=== PATIENT | female | born 1985 | race Hispanic/Latino ===

== ENCOUNTER 2024-03-05 15:57 | Inpatient (IN) | payer BC ==
[~2024-03-05] VITALS: Ht 154.9 cm; Wt 57.4 kg
[~2024-03-05 15:57] MED LIST: FAMO40TA7 PO; MESA1.2T PO; PRED20B PO
[2024-03-05 16:50] LABS: BASOPHILS # (AUTO) 0.11 K/uL (0.00-0.20); BASOPHILS % (AUTO) 0.6 % (0.0-5.0); EOSINOPHILS # (AUTO) 0.08 K/uL (0.00-0.70); EOSINOPHILS % (AUTO) 0.5 % (0.0-8.0); HEMATOCRIT 34.9 % (36-48); IMMATURE GRANULOCYTE ABSOLUTE 0.31 K/uL (0-1); LYMPHOCYTES # (AUTO) 1.1 K/uL (1.0-4.8); LYMPHOCYTES % (AUTO) 6.1 % (21.0-51.0); MEAN CORPUSCULAR HEMOGLOBIN 26.6 pg (27.0-33.0); MEAN CORPUSCULAR HGB CONC 30.7 g/dL (32.0-36.0); MEAN CORPUSCULAR VOLUME 86.6 fL (79-99); MONOCYTES # (AUTO) 0.8 K/uL (0.1-1.0); MONOCYTES % (AUTO) 4.3 % (3.0-13.0); NEUTROPHILS # (AUTO) 15.2 K/uL (1.8-7.7); NEUTROPHILS % (AUTO) 86.7 % (40.0-77.0); NUCLEATED RED BLOOD CELLS 0.2 % (0.0-0.19); PLATELET COUNT (AUTO) 628 K/uL (130-400); RED BLOOD CELL COUNT(AUTO) 4.03 MIL/uL (4.00-5.50); WHITE BLOOD COUNT (AUTO) 17.5 K/uL (4.8-10.8)
[2024-03-05 16:59] LABS: APPEARANCE,URINE CLOUDY (CLEAR); BILIRUBIN,URINE NEGATIVE (NEGATIVE); COLOR,URINE YELLOW (YELLOW); GLUCOSE, URINE (UA) 30 mg/dL (NEGATIVE); KETONES,URINE 5 mg/dL (NEGATIVE); LEUKOCYTE ESTERASE ,URINE NEGATIVE Leu/uL (NEGATIVE); NITRATE,URINE NEGATIVE (NEGATIVE); OCCULT BLOOD,URINE NEGATIVE (NEGATIVE); PH,URINE 6.5 (5.0-8.0); PROTEIN,URINE 70 mg/dL (NEGATIVE); UROBILINOGEN,URINE 0.2 mg/dL (0.2-1.0)
[2024-03-05 17:11] LABS: ADD UA MICROSCOPIC YES
[2024-03-05 17:13] LABS: BACTERIA,URINE RARE /HPF (None Seen); MUCUS,URINE FEW LPF (None Seen); SQUAMOUS EPITHELIAL CELL,UR FEW /HPF (0-2)
[2024-03-05 17:14] LABS: ALBUMIN 1.6 g/dL (3.5-5.0); BILIRUBIN,TOTAL 0.3 mg/dL (0.2-1.0); CREATININE 0.7 mg/dL (0.5-1.0); TOTAL PROTEIN, SERUM 5.7 g/dL (6.0-8.3)
[2024-03-05 17:17] LABS: POTASSIUM 2.5 mmol/L (3.5-5.1)
[2024-03-05] MEDS: 0.9%NACL 1000ML 1,000 ML IV ONE (17:22)
[2024-03-05] MEDS: ONDANSETRON 4MG INJ IVP ONE (17:22)
[2024-03-05] MEDS: MORPHINE 4 MG SYG IVP ONE (17:22)
[2024-03-05] MEDS: POTASSIUM BICARB/CIT AC 25 MEQ TABLET.EFF PO ONE (18:08)
[2024-03-05] MEDS: ZOSYN 3.375GM +NS 50ML IVPB ONE (18:08)
[2024-03-05] MEDS ORDERED: IOHEXOL 350 MG/ML 100ML INFUS..BTL IV ONE (18:14)
[2024-03-05] MEDS: SOLU-MEDROL 125MG VIAL IVP SCH (20:21)
[2024-03-05] MEDS: MORPHINE 2 MG SYG IVP ONE (22:07)
[2024-03-05] MEDS: LACTATED RINGERS 1000ML 1,000 ML IV SCH (23:52)
[2024-03-06] VITALS (8 sets, daily range): BP systolic 86–108; BP diastolic 59–76; PULSE 105–117; RESP 16–20; O2SAT 99
[2024-03-06] MEDS: POTASSIUM CHLORIDE 20MEQ/100ML 100 ML IV PRN (01:31)
[2024-03-06] MEDS: MORPHINE 2 MG SYG IVP PRN (03:40)
[2024-03-06] MEDS: ZOSYN 3.375GM+NS 50ML 50 ML IV SCH (04:53)
[2024-03-06 06:10] LABS: BASOPHILS # (AUTO) 0.09 K/uL (0.00-0.20); BASOPHILS % (AUTO) 0.5 % (0.0-5.0); HEMATOCRIT 28.8 % (36-48); IMMATURE GRANULOCYTE ABSOLUTE 0.23 K/uL (0-1); LYMPHOCYTES # (AUTO) 0.9 K/uL (1.0-4.8); LYMPHOCYTES % (AUTO) 4.8 % (21.0-51.0); MEAN CORPUSCULAR HEMOGLOBIN 26.9 pg (27.0-33.0); MEAN CORPUSCULAR HGB CONC 29.5 g/dL (32.0-36.0); MEAN CORPUSCULAR VOLUME 91.1 fL (79-99); MONOCYTES # (AUTO) 0.2 K/uL (0.1-1.0); MONOCYTES % (AUTO) 0.8 % (3.0-13.0); NEUTROPHILS # (AUTO) 17.8 K/uL (1.8-7.7); NEUTROPHILS % (AUTO) 92.7 % (40.0-77.0); PLATELET COUNT (AUTO) 566 K/uL (130-400); RED BLOOD CELL COUNT(AUTO) 3.16 MIL/uL (4.00-5.50); RED CELL DISTRIBUTION WIDTH 25.6 % (11.0-15.5); WHITE BLOOD COUNT (AUTO) 19.1 K/uL (4.8-10.8)
[2024-03-06 06:31] LABS: ALBUMIN 1.2 g/dL (3.5-5.0); BILIRUBIN,TOTAL 0.1 mg/dL (0.2-1.0); CREATININE 0.5 mg/dL (0.5-1.0); MAGNESIUM 1.8 mg/dL (1.80-2.40); POTASSIUM 3.8 mmol/L (3.5-5.1); THYROID STIMULATING HORMONE 0.44 uIU/mL (0.36-3.74); TOTAL PROTEIN, SERUM 4.5 g/dL (6.0-8.3)
[2024-03-06] MEDS: PANTOPRAZOLE 40 MG/VIAL IVP SCH (09:27)
[2024-03-06] MEDS: SOLU-MEDROL 40MG VIAL IVP SCH (09:27)
[2024-03-06 11:34] LABS: HEMATOCRIT 29.1 % (36-48); MEAN CORPUSCULAR HEMOGLOBIN 26.8 pg (27.0-33.0); MEAN CORPUSCULAR HGB CONC 29.6 g/dL (32.0-36.0); MEAN CORPUSCULAR VOLUME 90.7 fL (79-99); RED BLOOD CELL COUNT(AUTO) 3.21 MIL/uL (4.00-5.50); RED CELL DISTRIBUTION WIDTH 25.5 % (11.0-15.5)
[2024-03-06 18:56] LABS: HEMATOCRIT 31.3 % (36-48); MEAN CORPUSCULAR HEMOGLOBIN 26.7 pg (27.0-33.0); MEAN CORPUSCULAR HGB CONC 29.1 g/dL (32.0-36.0); MEAN CORPUSCULAR VOLUME 91.8 fL (79-99); RED BLOOD CELL COUNT(AUTO) 3.41 MIL/uL (4.00-5.50); RED CELL DISTRIBUTION WIDTH 25.7 % (11.0-15.5); WHITE BLOOD COUNT (AUTO) 25.3 K/uL (4.8-10.8)
[2024-03-06 19:29] LABS: PLATELET COUNT (AUTO) 737 K/uL (130-400)
[2024-03-07] VITALS (7 sets, daily range): BP systolic 96–122; BP diastolic 64–78; PULSE 90–107; RESP 17–20; O2SAT 97–100
[2024-03-07 05:36] LABS: HEMATOCRIT 23.8 % (36-48); MEAN CORPUSCULAR HEMOGLOBIN 26.4 pg (27.0-33.0); MEAN CORPUSCULAR HGB CONC 30.3 g/dL (32.0-36.0); MEAN CORPUSCULAR VOLUME 87.2 fL (79-99); NUCLEATED RED BLOOD CELLS 0.2 % (0.0-0.19); RED BLOOD CELL COUNT(AUTO) 2.73 MIL/uL (4.00-5.50); RED CELL DISTRIBUTION WIDTH 25.2 % (11.0-15.5); WHITE BLOOD COUNT (AUTO) 13.9 K/uL (4.8-10.8)
[2024-03-07 05:56] LABS: ALBUMIN 1.2 g/dL (3.5-5.0); BILIRUBIN,TOTAL 0.1 mg/dL (0.2-1.0); CREATININE 0.5 mg/dL (0.5-1.0); POTASSIUM 3.3 mmol/L (3.5-5.1); TOTAL PROTEIN, SERUM 4.4 g/dL (6.0-8.3)
[2024-03-07] MEDS ORDERED: POTASSIUM CHLORIDE 20MEQ/100ML 100 ML IV PRN (06:30)
[2024-03-07] MEDS: POTASSIUM CHLORIDE 10% ELIXIR 20 MEQ/15 ML UDCUP PO PRN (06:49)
[2024-03-07] MEDS: POTASSIUM CHLORIDE 20MEQ/100ML 100 ML IV ONE (10:30)
[2024-03-07 11:22] LABS: HEMATOCRIT 28.3 % (36-48); MEAN CORPUSCULAR HEMOGLOBIN 27.3 pg (27.0-33.0); MEAN CORPUSCULAR HGB CONC 29.3 g/dL (32.0-36.0); MEAN CORPUSCULAR VOLUME 93.1 fL (79-99); NUCLEATED RED BLOOD CELLS 0.1 % (0.0-0.19); RED BLOOD CELL COUNT(AUTO) 3.04 MIL/uL (4.00-5.50); RED CELL DISTRIBUTION WIDTH 25.2 % (11.0-15.5); WHITE BLOOD COUNT (AUTO) 21.1 K/uL (4.8-10.8)
[2024-03-07 11:39] LABS: % IRON SATURATION 74.1 % (22-44)
[2024-03-07 11:50] LABS: INR 0.96 (0.85-1.15); PROTHROMBIN TIME 11.4 SEC (9.6-11.6)
[2024-03-07 11:51] LABS: PARTIAL THROMBOPLASTIN TIME 27.2 SEC (26.3-35.5)
[2024-03-07] MEDS: IRON SUCROSE COMPLEX 100 MG/5 ML VIAL IV ONE (16:53)
[2024-03-07 19:25] LABS: HEMATOCRIT 33.2 % (36-48); MEAN CORPUSCULAR HEMOGLOBIN 26.8 pg (27.0-33.0); MEAN CORPUSCULAR HGB CONC 29.8 g/dL (32.0-36.0); NUCLEATED RED BLOOD CELLS 0.2 % (0.0-0.19); RED BLOOD CELL COUNT(AUTO) 3.69 MIL/uL (4.00-5.50); RED CELL DISTRIBUTION WIDTH 23.3 % (11.0-15.5); WHITE BLOOD COUNT (AUTO) 15.6 K/uL (4.8-10.8)
[2024-03-08] VITALS (7 sets, daily range): BP systolic 98–110; BP diastolic 59–77; PULSE 77–114; RESP 16–18; O2SAT 98–99
[2024-03-08] MEDS: MORPHINE 2 MG SYG IVP ONE (00:43)
[2024-03-08 04:13] LABS: HEMATOCRIT 26.8 % (36-48); MEAN CORPUSCULAR HEMOGLOBIN 27.3 pg (27.0-33.0); MEAN CORPUSCULAR HGB CONC 30.6 g/dL (32.0-36.0); MEAN CORPUSCULAR VOLUME 89.3 fL (79-99); NUCLEATED RED BLOOD CELLS 0.2 % (0.0-0.19); RED CELL DISTRIBUTION WIDTH 22.7 % (11.0-15.5); WHITE BLOOD COUNT (AUTO) 12.1 K/uL (4.8-10.8)
[2024-03-08 04:24] LABS: ALBUMIN 1.2 g/dL (3.5-5.0); BILIRUBIN,TOTAL 0.1 mg/dL (0.2-1.0); CREATININE 0.6 mg/dL (0.5-1.0); POTASSIUM 3.5 mmol/L (3.5-5.1); TOTAL PROTEIN, SERUM 4.3 g/dL (6.0-8.3)
[2024-03-08] MEDS: PREDNISONE 20 MG TABLET PO SCH (09:13)
[2024-03-08] MEDS: KCL 20 MEQ ERTAB PO ONE (10:00)
[2024-03-09] VITALS (8 sets, daily range): BP systolic 87–109; BP diastolic 56–77; PULSE 72–118; RESP 16–19; O2SAT 95–98
[2024-03-09 04:52] LABS: HEMATOCRIT 28.3 % (36-48); MEAN CORPUSCULAR HEMOGLOBIN 27.6 pg (27.0-33.0); MEAN CORPUSCULAR HGB CONC 30.4 g/dL (32.0-36.0); MEAN CORPUSCULAR VOLUME 90.7 fL (79-99); NUCLEATED RED BLOOD CELLS 0.6 % (0.0-0.19); RED BLOOD CELL COUNT(AUTO) 3.12 MIL/uL (4.00-5.50); WHITE BLOOD COUNT (AUTO) 10.9 K/uL (4.8-10.8)
[2024-03-09 05:19] LABS: ALBUMIN 1.3 g/dL (3.5-5.0); BILIRUBIN,TOTAL 0.1 mg/dL (0.2-1.0); CREATININE 0.5 mg/dL (0.5-1.0); MAGNESIUM 1.6 mg/dL (1.80-2.40); POTASSIUM 4.2 mmol/L (3.5-5.1); TOTAL PROTEIN, SERUM 4.5 g/dL (6.0-8.3)
[2024-03-09] MEDS: MAGNESIUM 2GM PREMIX 50ML 50 ML IV PRN (05:56)
[2024-03-10] VITALS (8 sets, daily range): BP systolic 97–114; BP diastolic 57–77; PULSE 69–104; RESP 16–47; O2SAT 98–100
[2024-03-10 04:20] LABS: HEMATOCRIT 27.1 % (36-48); MEAN CORPUSCULAR HEMOGLOBIN 26.6 pg (27.0-33.0); MEAN CORPUSCULAR HGB CONC 29.9 g/dL (32.0-36.0); MEAN CORPUSCULAR VOLUME 89.1 fL (79-99); RED BLOOD CELL COUNT(AUTO) 3.04 MIL/uL (4.00-5.50); RED CELL DISTRIBUTION WIDTH 22.3 % (11.0-15.5); WHITE BLOOD COUNT (AUTO) 10.3 K/uL (4.8-10.8)
[2024-03-10 04:35] LABS: ALBUMIN 1.3 g/dL (3.5-5.0); BILIRUBIN,TOTAL 0.1 mg/dL (0.2-1.0); CREATININE 0.4 mg/dL (0.5-1.0); MAGNESIUM 2.2 mg/dL (1.80-2.40); POTASSIUM 3.9 mmol/L (3.5-5.1); TOTAL PROTEIN, SERUM 4.4 g/dL (6.0-8.3)
[2024-03-10] MEDS: BISACODYL 5 MG TABLET.DR PO ONE (10:40)
[2024-03-10] MEDS: ONDANSETRON 4MG INJ IV PRN (12:34)
[2024-03-10] MEDS: NEOMYCIN SULFATE 500 MG TAB PO SCH (13:38)
[2024-03-10] MEDS: METRONIDAZOLE 500 MG TABLET PO SCH (13:38)
[2024-03-11] VITALS (27 sets, daily range): BP systolic 8–152; BP diastolic 49–96; PULSE 81–97; RESP 11–22; O2SAT 100
[2024-03-11] MEDS: KETOROLAC 15MG/ML VIAL (15MG/ML) IV ONE (04:05)
[2024-03-11 05:32] LABS: HEMATOCRIT 30.5 % (36-48); MEAN CORPUSCULAR HEMOGLOBIN 27.2 pg (27.0-33.0); MEAN CORPUSCULAR HGB CONC 30.2 g/dL (32.0-36.0); MEAN CORPUSCULAR VOLUME 90.2 fL (79-99); NUCLEATED RED BLOOD CELLS 0.5 % (0.0-0.19); RED BLOOD CELL COUNT(AUTO) 3.38 MIL/uL (4.00-5.50); RED CELL DISTRIBUTION WIDTH 22.3 % (11.0-15.5)
[2024-03-11 05:54] LABS: ALBUMIN 1.5 g/dL (3.5-5.0); BILIRUBIN,TOTAL 0.2 mg/dL (0.2-1.0); CREATININE 0.5 mg/dL (0.5-1.0); POTASSIUM 3.3 mmol/L (3.5-5.1); TOTAL PROTEIN, SERUM 4.9 g/dL (6.0-8.3)
[2024-03-11] MEDS: LACTATED RINGERS 1000ML 1,000 ML IV ONE ×2 (11:35→11:36)
[2024-03-11] MEDS: ACETAMINOPHEN 1,000 MG/100 ML VIAL IV ONE ×2 (11:41→22:13)
[2024-03-11] MEDS ORDERED: BUPIVACAINE/PF 0.5% 30ML VIAL ONE (11:41)
[2024-03-11] MEDS: FAMOTIDINE 20MG VIAL IV ONE (11:41)
[2024-03-11] MEDS ORDERED: LIDOCAINE 1%-EPI 1:100,000 20 ML VIAL ONE (11:41)
[2024-03-11] MEDS ORDERED: LIDOCAINE PF 100MG/5ML (2%) SYRINGE 5ML ONE (11:45)
[2024-03-11] MEDS ORDERED: PROPOFOL 10 MG/ML 20ML VIAL IV ONE (11:46)
[2024-03-11] MEDS ORDERED: FENTANYL CITRATE PF 50 MCG/1 ML 2ML VIAL ONE ×3 (11:46→20:12)
[2024-03-11] MEDS ORDERED: ROCURONIUM BROMIDE 10MG/1ML 5ML VL ONE ×2 (11:46→12:56)
[2024-03-11] MEDS ORDERED: KETAMINE 50MG/ML SYRINGE 50 MG/ML DISP.SYRIN ONE (11:49)
[2024-03-11] MEDS ORDERED: DEXAMETHASONE SOD PHOSPHATE 10MG/ML 1ML VIAL ONE (12:51)
[2024-03-11] MEDS ORDERED: ONDANSETRON 4MG INJ ONE (12:51)
[2024-03-11] MEDS: CEFAZOLIN SODIUM 2 GM VIAL IVPB ONE (13:00)
[2024-03-11] MEDS ORDERED: GLYCOPYRROLATE 0.2 MG/ML 5 ML VIAL ONE (13:10)
[2024-03-11] MEDS ORDERED: PHARMACY COMMUNICATION MISC SCH ×2 (13:30→21:00)
[2024-03-11] MEDS: INVANZ 1GM+NS 50ML IVPB 50 ML IV ONE (13:30)
[2024-03-11] MEDS: ALBUMIN (HUMAN) 5% 500 ML IV ONE (14:00)
[2024-03-11] MEDS: INDOCYANINE GREEN 25 MG VIAL IJ ONE (14:48)
[2024-03-11] MEDS ORDERED: PHENYLEPHRINE HCL 10 MG/ML 1ML VIAL IV ONE (18:57)
[2024-03-11] MEDS ORDERED: NEOSTIGMINE METHYLSULFATE 1MG/ML IV ONE (20:03)
[2024-03-11] MEDS ORDERED: MEPERIDINE-PF 25 MG/ML SYG ONE (20:07)
[2024-03-11] MEDS: SUGAMMADEX SODIUM 200 MG/2 ML VIAL IV ONE (20:29)
[2024-03-11] MEDS ORDERED: HYDROCODONE/ACETAMINOPHEN 5/325 MG TAB PO PRN (20:30)
[2024-03-11] MEDS: GABAPENTIN 100 MG CAPSULE PO SCH (21:00)
[2024-03-11] MEDS: MEPERIDINE-PF 25 MG/ML SYG ONE (22:13)
[2024-03-11] MEDS: CEFAZOLIN SODIUM 2 GM VIAL ONE (22:34)
[2024-03-11] MEDS: CEFAZOLIN SODIUM 2 GM VIAL IVPB SCH (22:42)
[2024-03-11] MEDS: METRONIDAZOLE 500MG/100ML BAG 100 ML ONE (22:52)
[2024-03-11] MEDS: METRONIDAZOLE 500MG/100ML BAG 100 ML IVPB SCH (22:59)
[2024-03-12] VITALS (11 sets, daily range): BP systolic 94–127; BP diastolic 49–72; PULSE 82–116; RESP 16–19; O2SAT 100
[2024-03-12] MEDS: OXYCODONE HCL 5 MG TAB PO PRN (04:37)
[2024-03-12 04:49] LABS: BASOPHILS # (AUTO) 0.06 K/uL (0.00-0.20); BASOPHILS % (AUTO) 0.3 % (0.0-5.0); HEMATOCRIT 27.1 % (36-48); IMMATURE GRANULOCYTE ABSOLUTE 1.39 K/uL (0-1); LYMPHOCYTES # (AUTO) 1.7 K/uL (1.0-4.8); LYMPHOCYTES % (AUTO) 8.8 % (21.0-51.0); MEAN CORPUSCULAR HEMOGLOBIN 28.7 pg (27.0-33.0); MEAN CORPUSCULAR HGB CONC 32.5 g/dL (32.0-36.0); MEAN CORPUSCULAR VOLUME 88.3 fL (79-99); MONOCYTES # (AUTO) 0.4 K/uL (0.1-1.0); MONOCYTES % (AUTO) 2.2 % (3.0-13.0); NEUTROPHILS # (AUTO) 15.4 K/uL (1.8-7.7); NEUTROPHILS % (AUTO) 81.4 % (40.0-77.0); NUCLEATED RED BLOOD CELLS 0.1 % (0.0-0.19); PLATELET COUNT (AUTO) 454 K/uL (130-400); RED BLOOD CELL COUNT(AUTO) 3.07 MIL/uL (4.00-5.50); RED CELL DISTRIBUTION WIDTH 19.2 % (11.0-15.5)
[2024-03-12 05:09] LABS: ALBUMIN 1.7 g/dL (3.5-5.0); BILIRUBIN,TOTAL 0.4 mg/dL (0.2-1.0); CREATININE 0.4 mg/dL (0.5-1.0); POTASSIUM 4.4 mmol/L (3.5-5.1); TOTAL PROTEIN, SERUM 4.2 g/dL (6.0-8.3)
[2024-03-12] MEDS: DICYCLOMINE HCL 20 MG TAB PO ONE (08:43)
[2024-03-12] MEDS: KETOROLAC 15MG/ML VIAL (15MG/ML) IV ONE (08:44)
[2024-03-12] MEDS: ENOXAPARIN SODIUM 40 MG/0.4 ML SYRINGE SQ SCH (10:36)
[2024-03-12] MEDS: HYDROCODONE/ACETAMINOPHEN 5/325 MG TAB PO PRN (11:28)
[2024-03-12] MEDS ORDERED: CEFAZOLIN SODIUM 2 GM in 0.9%NACL 50ML 50 ML IV SCH (12:00)
[2024-03-12 18:40] LABS: HEMATOCRIT 26.1 % (36-48)
[2024-03-13] VITALS (7 sets, daily range): BP systolic 96–127; BP diastolic 64–81; PULSE 86–108; RESP 16–18; O2SAT 97
[2024-03-13 04:37] LABS: BASOPHILS # (AUTO) 0.06 K/uL (0.00-0.20); BASOPHILS % (AUTO) 0.4 % (0.0-5.0); EOSINOPHILS # (AUTO) 0.01 K/uL (0.00-0.70); EOSINOPHILS % (AUTO) 0.1 % (0.0-8.0); HEMATOCRIT 26.6 % (36-48); IMMATURE GRANULOCYTE ABSOLUTE 1.94 K/uL (0-1); LYMPHOCYTES % (AUTO) 19.9 % (21.0-51.0); MEAN CORPUSCULAR HEMOGLOBIN 28.8 pg (27.0-33.0); MEAN CORPUSCULAR HGB CONC 31.6 g/dL (32.0-36.0); MEAN CORPUSCULAR VOLUME 91.1 fL (79-99); MONOCYTES # (AUTO) 0.7 K/uL (0.1-1.0); MONOCYTES % (AUTO) 4.8 % (3.0-13.0); NEUTROPHILS # (AUTO) 9.3 K/uL (1.8-7.7); NEUTROPHILS % (AUTO) 61.9 % (40.0-77.0); NUCLEATED RED BLOOD CELLS 0.2 % (0.0-0.19); PLATELET COUNT (AUTO) 424 K/uL (130-400); RED BLOOD CELL COUNT(AUTO) 2.92 MIL/uL (4.00-5.50); RED CELL DISTRIBUTION WIDTH 20.3 % (11.0-15.5); WHITE BLOOD COUNT (AUTO) 15.1 K/uL (4.8-10.8)
[2024-03-13 04:47] LABS: CREATININE 0.6 mg/dL (0.5-1.0); POTASSIUM 3.4 mmol/L (3.5-5.1)
[2024-03-13] MEDS: KCL 20 MEQ ERTAB PO PRN (06:03)
[2024-03-13] MEDS ORDERED: MAGNESIUM 2GM PREMIX 50ML 50 ML IV PRN (07:00)
[2024-03-13] MEDS: POTASSIUM CHLORIDE 20MEQ/100ML 100 ML IV ONE (07:20)
[2024-03-13] MEDS: PREDNISONE 10 MG TABLET PO SCH (08:00)
[2024-03-13] MEDS: DIPHENOXYLATE HCL/ATROPINE 2.5/0.025 MG TAB PO SCH (13:25)
[2024-03-13] MEDS: HYDROMORPHONE 0.5 MG SYG (0.5MG/0.5ML) IVP PRN (23:47)
[2024-03-14] VITALS (7 sets, daily range): BP systolic 108–128; BP diastolic 71–86; PULSE 76–135; RESP 16–18; O2SAT 98
[2024-03-14 04:51] LABS: BASOPHILS # (AUTO) 0.17 K/uL (0.00-0.20); BASOPHILS % (AUTO) 0.8 % (0.0-5.0); EOSINOPHILS # (AUTO) 0.03 K/uL (0.00-0.70); EOSINOPHILS % (AUTO) 0.1 % (0.0-8.0); HEMATOCRIT 28.2 % (36-48); IMMATURE GRANULOCYTE ABSOLUTE 4.24 K/uL (0-1); MEAN CORPUSCULAR HEMOGLOBIN 28.3 pg (27.0-33.0); MEAN CORPUSCULAR HGB CONC 31.6 g/dL (32.0-36.0); MEAN CORPUSCULAR VOLUME 89.5 fL (79-99); MONOCYTES # (AUTO) 0.7 K/uL (0.1-1.0); MONOCYTES % (AUTO) 3.4 % (3.0-13.0); NEUTROPHILS # (AUTO) 13.4 K/uL (1.8-7.7); NUCLEATED RED BLOOD CELLS 0.2 % (0.0-0.19); PLATELET COUNT (AUTO) 428 K/uL (130-400); RED BLOOD CELL COUNT(AUTO) 3.15 MIL/uL (4.00-5.50); RED CELL DISTRIBUTION WIDTH 20.1 % (11.0-15.5); WHITE BLOOD COUNT (AUTO) 21.6 K/uL (4.8-10.8)
[2024-03-14 05:15] LABS: CREATININE 0.4 mg/dL (0.5-1.0); MAGNESIUM 1.5 mg/dL (1.80-2.40); POTASSIUM 3.3 mmol/L (3.5-5.1)
[2024-03-14] MEDS: MAGNESIUM 2GM PREMIX 50ML 50 ML IV SCH (09:03)
[2024-03-15] VITALS (8 sets, daily range): BP systolic 105–137; BP diastolic 73–89; PULSE 101–130; RESP 14–20; O2SAT 97–98
[2024-03-15 03:49] LABS: BASOPHILS # (AUTO) 0.03 K/uL (0.00-0.20); BASOPHILS % (AUTO) 0.1 % (0.0-5.0); EOSINOPHILS # (AUTO) 0.02 K/uL (0.00-0.70); EOSINOPHILS % (AUTO) 0.1 % (0.0-8.0); HEMATOCRIT 30.6 % (36-48); IMMATURE GRANULOCYTE ABSOLUTE 3.71 K/uL (0-1); LYMPHOCYTES # (AUTO) 3.1 K/uL (1.0-4.8); LYMPHOCYTES % (AUTO) 10.3 % (21.0-51.0); MEAN CORPUSCULAR HEMOGLOBIN 29.5 pg (27.0-33.0); MEAN CORPUSCULAR HGB CONC 32.4 g/dL (32.0-36.0); MEAN CORPUSCULAR VOLUME 91.1 fL (79-99); MONOCYTES % (AUTO) 3.3 % (3.0-13.0); NEUTROPHILS # (AUTO) 22.2 K/uL (1.8-7.7); NEUTROPHILS % (AUTO) 73.8 % (40.0-77.0); NUCLEATED RED BLOOD CELLS 0.5 % (0.0-0.19); PLATELET COUNT (AUTO) 514 K/uL (130-400); RED BLOOD CELL COUNT(AUTO) 3.36 MIL/uL (4.00-5.50); RED CELL DISTRIBUTION WIDTH 20.1 % (11.0-15.5)
[2024-03-15 04:04] LABS: ALBUMIN 1.6 g/dL (3.5-5.0); BILIRUBIN,TOTAL 0.1 mg/dL (0.2-1.0); CREATININE 0.5 mg/dL (0.5-1.0); MAGNESIUM 2.1 mg/dL (1.80-2.40); POTASSIUM 4.8 mmol/L (3.5-5.1); TOTAL PROTEIN, SERUM 4.7 g/dL (6.0-8.3)
[2024-03-15 04:17] LABS: BAND NEUTROPHILS % (MANUAL) 2 % (0-2); EOSINOPHILS % (MANUAL) 1 % (1-6); LYMPHOCYTES % (MANUAL) 10 % (22-44); MONOCYTES % (MANUAL) 3 % (2-9); OTHER CELLS,MANUAL % 2 (0-0); SEGMENTED NEUTROPHILS % 82 % (40-70); TOTAL CELLS COUNTED 100
[2024-03-15 04:18] LABS: MAN.DIFF COMMENT-IMPRESSION MANUAL DIFFERENTIAL; PLATELET MORPHOLOGY COMMENT INCREASED
[2024-03-15] MEDS: PREDNISONE 5 MG TABLET PO SCH (08:32)
[2024-03-15] MEDS: LEVOFLOXACIN 750 MG/D5W 150ML BAG IV SCH (10:40)
[2024-03-15] MEDS: 0.9%NACL 1000ML 1,000 ML IV ONE (15:17)
[2024-03-16] VITALS (8 sets, daily range): BP systolic 111–130; BP diastolic 75–93; PULSE 105–150; RESP 17–18; O2SAT 97–98
[2024-03-16 04:00] LABS: BASOPHILS # (AUTO) 0.14 K/uL (0.00-0.20); BASOPHILS % (AUTO) 0.4 % (0.0-5.0); EOSINOPHILS # (AUTO) 0.03 K/uL (0.00-0.70); EOSINOPHILS % (AUTO) 0.1 % (0.0-8.0); HEMATOCRIT 29.8 % (36-48); LYMPHOCYTES # (AUTO) 3.1 K/uL (1.0-4.8); LYMPHOCYTES % (AUTO) 9.1 % (21.0-51.0); MEAN CORPUSCULAR HEMOGLOBIN 29.1 pg (27.0-33.0); MEAN CORPUSCULAR HGB CONC 30.5 g/dL (32.0-36.0); MEAN CORPUSCULAR VOLUME 95.2 fL (79-99); MONOCYTES # (AUTO) 1.1 K/uL (0.1-1.0); MONOCYTES % (AUTO) 3.4 % (3.0-13.0); NEUTROPHILS # (AUTO) 25.8 K/uL (1.8-7.7); NEUTROPHILS % (AUTO) 76.6 % (40.0-77.0); NUCLEATED RED BLOOD CELLS 0.7 % (0.0-0.19); PLATELET COUNT (AUTO) 451 K/uL (130-400); RED BLOOD CELL COUNT(AUTO) 3.13 MIL/uL (4.00-5.50); RED CELL DISTRIBUTION WIDTH 20.8 % (11.0-15.5)
[2024-03-16 04:11] LABS: WHITE BLOOD COUNT (AUTO) 33.7 K/uL (4.8-10.8)
[2024-03-16 05:20] LABS: BASOPHILS % (MANUAL) 1 % (0-2); LYMPHOCYTES % (MANUAL) 10 % (22-44); MAN.DIFF COMMENT-IMPRESSION MANUAL DIFFERENTIAL; MONOCYTES % (MANUAL) 5 % (2-9); MYELOCYTES % 1 % (0-0); SEGMENTED NEUTROPHILS % 83 % (40-70); TOTAL CELLS COUNTED 100
[2024-03-16 05:32] LABS: PLATELET MORPHOLOGY COMMENT INCREASED; WBC MORPHOLOGY VACUOLATION 1+
[2024-03-16 06:57] LABS: ALBUMIN 1.5 g/dL (3.5-5.0); BILIRUBIN,TOTAL 0.3 mg/dL (0.2-1.0); CREATININE 0.4 mg/dL (0.5-1.0); MAGNESIUM 1.7 mg/dL (1.80-2.40); POTASSIUM 4.4 mmol/L (3.5-5.1); TOTAL PROTEIN, SERUM 4.3 g/dL (6.0-8.3)
[2024-03-16] MEDS: METOCLOPRAMIDE 10 MG/2 ML VIAL IVP ONE (08:47)
[2024-03-16] MEDS: 0.9%NACL 1000ML 1,000 ML IV SCH (13:09)
[2024-03-16] MEDS: DEXAMETHASONE 4 MG TAB PO SCH (18:11)
[2024-03-16] MEDS: HYDROMORPHONE 0.5 MG SYG (0.5MG/0.5ML) IVP ONE (21:31)
[2024-03-16] MEDS: PROCHLORPERAZINE 10MG/2ML INJ IV ONE (21:31)
[2024-03-17] VITALS (8 sets, daily range): BP systolic 110–137; BP diastolic 72–93; PULSE 111–127; RESP 16–20; O2SAT 98–99
[2024-03-17] MEDS: HYDROMORPHONE 0.5 MG SYG (0.5MG/0.5ML) IVP ONE (03:37)
[2024-03-17 04:53] LABS: BASOPHILS # (AUTO) 0.15 K/uL (0.00-0.20); BASOPHILS % (AUTO) 0.4 % (0.0-5.0); HEMATOCRIT 29.2 % (36-48); LYMPHOCYTES # (AUTO) 1.6 K/uL (1.0-4.8); LYMPHOCYTES % (AUTO) 4.6 % (21.0-51.0); MEAN CORPUSCULAR HGB CONC 30.8 g/dL (32.0-36.0); MEAN CORPUSCULAR VOLUME 94.2 fL (79-99); MONOCYTES # (AUTO) 0.5 K/uL (0.1-1.0); MONOCYTES % (AUTO) 1.3 % (3.0-13.0); NEUTROPHILS # (AUTO) 29.4 K/uL (1.8-7.7); NEUTROPHILS % (AUTO) 86.4 % (40.0-77.0); NUCLEATED RED BLOOD CELLS 0.3 % (0.0-0.19); PLATELET COUNT (AUTO) 568 K/uL (130-400); RED CELL DISTRIBUTION WIDTH 21.4 % (11.0-15.5)
[2024-03-17 05:05] LABS: WHITE BLOOD COUNT (AUTO) 34.1 K/uL (4.8-10.8)
[2024-03-17 05:14] LABS: ALBUMIN 1.7 g/dL (3.5-5.0); BILIRUBIN,TOTAL 0.3 mg/dL (0.2-1.0); CREATININE 0.4 mg/dL (0.5-1.0); POTASSIUM 3.4 mmol/L (3.5-5.1); TOTAL PROTEIN, SERUM 4.7 g/dL (6.0-8.3)
[2024-03-17 05:43] LABS: LYMPHOCYTES % (MANUAL) 10 % (22-44); MAN.DIFF COMMENT-IMPRESSION MANUAL DIFFERENTIAL; MONOCYTES % (MANUAL) 2 % (2-9); MYELOCYTES % 1 % (0-0); PLATELET MORPHOLOGY COMMENT INCREASED; REACTIVE LYMPHOCYTES 1 % (0-0); SEGMENTED NEUTROPHILS % 86 % (40-70); TOTAL CELLS COUNTED 100
[2024-03-17] MEDS: 0.9%NACL 1000ML 1,434 ML IV ONE ×2 (07:30→11:23)
[2024-03-17] MEDS ORDERED: DIATR MEGLU/DIATRIZOATE SODIUM 30 ML BOTTLE ONE (08:05)
[2024-03-17 18:32] LABS: BASOPHILS # (AUTO) 0.08 K/uL (0.00-0.20); BASOPHILS % (AUTO) 0.3 % (0.0-5.0); HEMATOCRIT 25.7 % (36-48); IMMATURE GRANULOCYTE ABSOLUTE 1.55 K/uL (0-1); LYMPHOCYTES # (AUTO) 1.7 K/uL (1.0-4.8); LYMPHOCYTES % (AUTO) 5.9 % (21.0-51.0); MEAN CORPUSCULAR HEMOGLOBIN 29.5 pg (27.0-33.0); MEAN CORPUSCULAR HGB CONC 31.1 g/dL (32.0-36.0); MEAN CORPUSCULAR VOLUME 94.8 fL (79-99); MONOCYTES # (AUTO) 0.9 K/uL (0.1-1.0); MONOCYTES % (AUTO) 3.1 % (3.0-13.0); NEUTROPHILS # (AUTO) 24.1 K/uL (1.8-7.7); NEUTROPHILS % (AUTO) 85.2 % (40.0-77.0); NUCLEATED RED BLOOD CELLS 0.1 % (0.0-0.19); PLATELET COUNT (AUTO) 364 K/uL (130-400); RED BLOOD CELL COUNT(AUTO) 2.71 MIL/uL (4.00-5.50); RED CELL DISTRIBUTION WIDTH 21.9 % (11.0-15.5); WHITE BLOOD COUNT (AUTO) 28.3 K/uL (4.8-10.8)
[2024-03-17 18:46] LABS: INR 1.02 (0.85-1.15)
[2024-03-17 18:57] LABS: ALBUMIN 1.6 g/dL (3.5-5.0); BILIRUBIN,TOTAL 0.3 mg/dL (0.2-1.0); CREATININE 0.5 mg/dL (0.5-1.0); POTASSIUM 3.3 mmol/L (3.5-5.1); TOTAL PROTEIN, SERUM 4.1 g/dL (6.0-8.3)
[2024-03-18] VITALS (9 sets, daily range): BP systolic 108–125; BP diastolic 54–82; PULSE 98–117; RESP 16–20; O2SAT 98–99
[2024-03-18 04:40] LABS: BASOPHILS # (AUTO) 0.04 K/uL (0.00-0.20); BASOPHILS % (AUTO) 0.2 % (0.0-5.0); EOSINOPHILS # (AUTO) 0.01 K/uL (0.00-0.70); EOSINOPHILS % (AUTO) 0.1 % (0.0-8.0); HEMATOCRIT 24.1 % (36-48); IMMATURE GRANULOCYTE ABSOLUTE 1.15 K/uL (0-1); MEAN CORPUSCULAR HGB CONC 31.5 g/dL (32.0-36.0); MEAN CORPUSCULAR VOLUME 95.3 fL (79-99); MONOCYTES # (AUTO) 0.8 K/uL (0.1-1.0); MONOCYTES % (AUTO) 4.2 % (3.0-13.0); NEUTROPHILS # (AUTO) 14.4 K/uL (1.8-7.7); NEUTROPHILS % (AUTO) 78.3 % (40.0-77.0); NUCLEATED RED BLOOD CELLS 0.1 % (0.0-0.19); PLATELET COUNT (AUTO) 362 K/uL (130-400); RED BLOOD CELL COUNT(AUTO) 2.53 MIL/uL (4.00-5.50); RED CELL DISTRIBUTION WIDTH 21.4 % (11.0-15.5); WHITE BLOOD COUNT (AUTO) 18.4 K/uL (4.8-10.8)
[2024-03-18 04:49] LABS: ALBUMIN 1.4 g/dL (3.5-5.0); BILIRUBIN,TOTAL 0.3 mg/dL (0.2-1.0); CREATININE 0.3 mg/dL (0.5-1.0); POTASSIUM 3.3 mmol/L (3.5-5.1); TOTAL PROTEIN, SERUM 3.8 g/dL (6.0-8.3)
[2024-03-18] MEDS: POTASSIUM CHLORIDE 10% ELIXIR 20 MEQ/15 ML UDCUP PO ONE (10:22)
[2024-03-19 03:20] VITALS: BP 105/75; PULSE 85; RESP 16
[2024-03-19 05:02] LABS: BASOPHILS # (AUTO) 0.03 K/uL (0.00-0.20); BASOPHILS % (AUTO) 0.2 % (0.0-5.0); EOSINOPHILS # (AUTO) 0.04 K/uL (0.00-0.70); EOSINOPHILS % (AUTO) 0.3 % (0.0-8.0); IMMATURE GRANULOCYTE ABSOLUTE 0.91 K/uL (0-1); LYMPHOCYTES # (AUTO) 1.8 K/uL (1.0-4.8); LYMPHOCYTES % (AUTO) 13.4 % (21.0-51.0); MEAN CORPUSCULAR HEMOGLOBIN 29.4 pg (27.0-33.0); MEAN CORPUSCULAR HGB CONC 31.2 g/dL (32.0-36.0); MEAN CORPUSCULAR VOLUME 94.3 fL (79-99); MONOCYTES # (AUTO) 0.7 K/uL (0.1-1.0); NEUTROPHILS % (AUTO) 74.3 % (40.0-77.0); NUCLEATED RED BLOOD CELLS 0.1 % (0.0-0.19); PLATELET COUNT (AUTO) 392 K/uL (130-400); RED BLOOD CELL COUNT(AUTO) 2.65 MIL/uL (4.00-5.50); RED CELL DISTRIBUTION WIDTH 22.1 % (11.0-15.5); WHITE BLOOD COUNT (AUTO) 13.5 K/uL (4.8-10.8)
[2024-03-19 05:15] LABS: ALBUMIN 1.6 g/dL (3.5-5.0); BILIRUBIN,TOTAL 0.3 mg/dL (0.2-1.0); CREATININE 0.3 mg/dL (0.5-1.0); POTASSIUM 3.2 mmol/L (3.5-5.1); TOTAL PROTEIN, SERUM 4.1 g/dL (6.0-8.3)
[2024-03-19 08:00] VITALS: BP 116/72; PULSE 103; RESP 14; O2SAT 96
[2024-03-19 11:45] VITALS: BP 111/69; PULSE 113; RESP 14
[2024-03-19 15:57] VITALS: BP 121/98; PULSE 112; RESP 14
[2024-03-19 19:20] VITALS: O2SAT 100
[2024-03-19 20:00] VITALS: BP 106/70; PULSE 114; RESP 18
[2024-03-20] VITALS: BP 101/62; PULSE 101; RESP 18
[2024-03-20 04:00] VITALS: BP 102/59; PULSE 101; RESP 18
[2024-03-20 04:54] LABS: BASOPHILS # (AUTO) 0.02 K/uL (0.00-0.20); BASOPHILS % (AUTO) 0.2 % (0.0-5.0); EOSINOPHILS # (AUTO) 0.14 K/uL (0.00-0.70); EOSINOPHILS % (AUTO) 1.4 % (0.0-8.0); HEMATOCRIT 24.7 % (36-48); IMMATURE GRANULOCYTE ABSOLUTE 0.51 K/uL (0-1); LYMPHOCYTES # (AUTO) 1.4 K/uL (1.0-4.8); LYMPHOCYTES % (AUTO) 13.3 % (21.0-51.0); MEAN CORPUSCULAR HEMOGLOBIN 30.1 pg (27.0-33.0); MEAN CORPUSCULAR HGB CONC 31.2 g/dL (32.0-36.0); MEAN CORPUSCULAR VOLUME 96.5 fL (79-99); MONOCYTES # (AUTO) 0.5 K/uL (0.1-1.0); MONOCYTES % (AUTO) 4.8 % (3.0-13.0); NEUTROPHILS # (AUTO) 7.8 K/uL (1.8-7.7); NEUTROPHILS % (AUTO) 75.4 % (40.0-77.0); PLATELET COUNT (AUTO) 332 K/uL (130-400); RED BLOOD CELL COUNT(AUTO) 2.56 MIL/uL (4.00-5.50); RED CELL DISTRIBUTION WIDTH 21.5 % (11.0-15.5); WHITE BLOOD COUNT (AUTO) 10.4 K/uL (4.8-10.8)
[2024-03-20 05:04] LABS: ALBUMIN 1.5 g/dL (3.5-5.0); BILIRUBIN,TOTAL 0.3 mg/dL (0.2-1.0); CREATININE 0.5 mg/dL (0.5-1.0); POTASSIUM 3.6 mmol/L (3.5-5.1)
[2024-03-20 08:00] VITALS: BP 112/63; PULSE 92; RESP 16; O2SAT 98
[2024-03-20] MEDS ORDERED: ONDA-104 PO (10:42)
[2024-03-23 12:09] LABS: C DIFFICILE TOXIN A/B Not Detected (Not Detected); ENTEROAGGREGATIVE ECOLI Not Detected (Not Detected); GIARDIA LAMBLIA Not Detected (Not Detected); PLESIOMONAS SHIGELOIDES Not Detected (Not Detected); SAPOVIRUS Not Detected (Not Detected); SHIGELLA/ENTEROINVASIVE E COLI Not Detected (Not Detected); VIBRIO Not Detected (Not Detected); VIBRIO CHOLERAE Not Detected (Not Detected)
== END 2024-03-20 12:50 | disposition home or self-care (01) | DRG 853 ==
LOC: EDH 15:57 → EDHIP 23:10 → 4BH 03-06 01:19 → 4CH 03-16 05:59
PROVIDERS: ADMIT Internal Medicine; ATTEND Internal Medicine
PROC: 0DTE4ZZ Resection of Large Intestine, Percutaneous Endoscopic Approach (ICD-10-PCS; principal; 2024-03-06)
PROC: 0D1B4Z4 Bypass Ileum to Cutaneous, Percutaneous Endoscopic Approach (ICD-10-PCS; 2024-03-06)
PROC: 0WUF47Z Supplement Abdominal Wall with Autologous Tissue Substitute, Percutaneous Endoscopic Approach (ICD-10-PCS; 2024-03-06)
PROC: 0DBP4ZZ Excision of Rectum, Percutaneous Endoscopic Approach (ICD-10-PCS; 2024-03-06)
PROC: 8E0W4CZ Robotic Assisted Procedure of Trunk Region, Percutaneous Endoscopic Approach (ICD-10-PCS; 2024-03-06)
PROC: 30233N1 Transfusion of Nonautologous Red Blood Cells into Peripheral Vein, Percutaneous Approach (ICD-10-PCS; 2024-03-07)
DX: A41.9 Sepsis, unspecified organism (principal); E43 Unspecified severe protein-calorie malnutrition; K56.609 Unspecified intestinal obstruction, unspecified as to partial versus complete obstruction; K56.7 Ileus, unspecified; K51.811 Other ulcerative colitis with rectal bleeding; E86.0 Dehydration; E87.6 Hypokalemia; E83.51 Hypocalcemia; D50.9 Iron deficiency anemia, unspecified; D69.6 Thrombocytopenia, unspecified; E87.5 Hyperkalemia; E83.42 Hypomagnesemia; D75.838 Other thrombocytosis; Z68.23 Body mass index [BMI] 23.0-23.9, adult; Z79.899 Other long term (current) drug therapy
CPT/HCPCS: 36415; 36430; 45330; 74018; 74177; 80048; 80053; 81001; 82306; 82948; 83540; 83550; 83605; 83690; 83735; 84145; 84443; 84703; 85014; 85018; 85025; 85027; 85610; 85730; 86850; 86900; 86901; 86923; 87040; 87088; 87507; 88305; 88307; 93005; A4344; A5061; A5073; C9113; G0378; J0780; J1100; J1170; J1335; J1650; J1756; J1885; J1956; J2001; J2175; J2270; J2371; J2405; J2543; J2704; J2710; J2765; J2919; J2920; J3010; J3475; J3480; J3490; J7030; J7120; J7512; J8540; P9016; P9045; Q9963; Q9967; A4215; A4216; A4221; A4222; A4223; A4452; A4649; A4930; C1769; G0168; J0665; J0690

== ENCOUNTER 2024-03-20 15:24 | Emergency (ER) | payer BC, MEDICAID ==
[~2024-03-20] VITALS: Ht 154.9 cm; Wt 52.2 kg
[~2024-03-20 15:24] MED LIST changes: +ONDA-104 PO
[2024-03-20 18:33] VITALS: BP 102/55; PULSE 105; RESP 20; O2SAT 99
== END 2024-03-20 18:37 | disposition home or self-care (01) ==
LOC: EDH 15:24
DX: Z43.3 Encounter for attention to colostomy (principal)

== ENCOUNTER 2024-03-20 23:35 | Emergency (ER) | payer BC, MEDICAID ==
[~2024-03-20] VITALS: Ht 154.9 cm; Wt 49.9 kg
[2024-03-21 00:07] VITALS: BP 119/77; PULSE 65; RESP 20; O2SAT 98
== END 2024-03-21 01:26 | disposition home or self-care (01) ==
LOC: EDH 23:35
DX: Z43.3 Encounter for attention to colostomy (principal); Z88.0 Allergy status to penicillin; Z88.8 Allergy status to other drugs, medicaments and biological substances
CPT/HCPCS: 99281

== ENCOUNTER 2025-01-24 01:00 | Observation (INO) | payer BC, MEDICAID ==
[~2025-01-24] VITALS: Ht 157.5 cm; Wt 56.7 kg
[~2025-01-24 01:00] MED LIST changes: -MESA1.2T PO; -PRED20B PO
--- NOTE | 2025-01-24 01:03 | NUR ---
UA CUP PROVIDED
[2025-01-24 01:21] LABS: BASOPHILS # (AUTO) 0.05 K/uL (0.00-0.20); BASOPHILS % (AUTO) 0.4 % (0.0-5.0); EOSINOPHILS # (AUTO) 0.18 K/uL (0.00-0.70); EOSINOPHILS % (AUTO) 1.5 % (0.0-8.0); HEMATOCRIT 38.5 % (36-48); IMMATURE GRANULOCYTE ABSOLUTE 0.06 K/uL (0-1); LYMPHOCYTES # (AUTO) 1.8 K/uL (1.0-4.8); LYMPHOCYTES % (AUTO) 15.1 % (21.0-51.0); MEAN CORPUSCULAR HGB CONC 32.5 g/dL (32.0-36.0); MEAN CORPUSCULAR VOLUME 83.2 fL (79-99); MONOCYTES # (AUTO) 0.4 K/uL (0.1-1.0); MONOCYTES % (AUTO) 3.7 % (3.0-13.0); NEUTROPHILS # (AUTO) 9.4 K/uL (1.8-7.7); NEUTROPHILS % (AUTO) 78.8 % (40.0-77.0); PLATELET COUNT (AUTO) 437 K/uL (130-400); RED BLOOD CELL COUNT(AUTO) 4.63 MIL/uL (4.00-5.50); RED CELL DISTRIBUTION WIDTH 14.2 % (11.0-15.5); WHITE BLOOD COUNT (AUTO) 11.9 K/uL (4.8-10.8)
[2025-01-24 01:23] LABS: APPEARANCE,URINE CLEAR (CLEAR); BILIRUBIN,URINE NEGATIVE (NEGATIVE); COLOR,URINE LIGHT-YELLOW (YELLOW); GLUCOSE, URINE (UA) NEGATIVE (NEGATIVE); KETONES,URINE NEGATIVE (NEGATIVE); LEUKOCYTE ESTERASE ,URINE 250 Leu/uL (NEGATIVE); NITRATE,URINE NEGATIVE (NEGATIVE); OCCULT BLOOD,URINE LARGE (NEGATIVE); PH,URINE 5.5 (5.0-8.0); PROTEIN,URINE NEGATIVE (NEGATIVE); UROBILINOGEN,URINE 0.2 mg/dL (0.2-1.0)
--- NOTE | 2025-01-24 01:25 | EKG ---
[facility] Test Date: 2025-01-24 Test Time: 01:23:44 Pat Name: JUAN MOJICA Department: ED Room: 408 Gender: F Associate Dentist: [id number] : [id number] Requested By: NEHEMIAH FREITAS Order Number: [id number] Reading MD: Juaquin Barnes Measurements Intervals Bear Rate: 75 P: 26 KS: 131 QRS: 38 QRSD: 73 T: 36 QT: 408 QTc: 456 Interpretive Statements Sinus rhythm Nonspecific STT abnormality Compared to ECG 03/12/2024 08:39:05 Short KS interval no longer present T-wave abnormality no longer present Electronically Signed On 01-24-2025 11:46:44 CDT by Juaquin Barnes Please click the below link to view image of tracing.
[2025-01-24 01:26] LABS: ADD UA MICROSCOPIC YES
[2025-01-24] MEDS: DICYCLOMINE HCL 10 MG/5 ML ML PO ONE (01:27)
[2025-01-24] MEDS: LIDOCAINE HCL 2% VISCOUS 15 ML UDCUP PO ONE (01:27)
[2025-01-24] MEDS: PANTOPrazole 40 MG/VIAL IVP ONE (01:27)
[2025-01-24] MEDS: ondanSETRON 4MG INJ IVP ONE (01:27)
[2025-01-24] MEDS: MAG/ALUM/SIMETH 30 ML UDCUP PO ONE (01:27)
[2025-01-24 01:28] LABS: HCG,QUALITATIVE URINE NEGATIVE (NEGATIVE)
[2025-01-24 01:28] LABS: POTASSIUM 3.5 mmol/L (3.5-5.1)
[2025-01-24 01:29] LABS: MUCUS,URINE RARE LPF (None Seen); SQUAMOUS EPITHELIAL CELL,UR FEW /HPF (0-2)
[2025-01-24 01:37] LABS: ALBUMIN 3.4 g/dL (3.5-5.0); BILIRUBIN,DIRECT 0.1 mg/dL (0.0-0.3); BILIRUBIN,TOTAL 0.2 mg/dL (0.2-1.0)
--- NOTE | 2025-01-24 02:10 | ERN ---
ED Note History of Present Illness Stated Complaint: ABD PAIN Chief Complaint: Abdominal Pain Time Seen by MD: 01:05 Time Seen by Midlevel: 01:05 Dictation: The patient is a 39 year old female with a history of ulcerative colitis who presents to the emergency department with complaints of epigastric abdominal pain associated with nausea onset 7:00 p.m. after eating pasta. Patient denies any vomiting, diarrhea or constipation. Denies any fevers. Allergies: Coded Allergies: piperacillin (Unverified Allergy, Unknown, RASH, 03/08/24) RASH TO FACE, HANDS AND TORSO tazobactam (Unverified Allergy, Unknown, RASH, 03/08/24) RASH TO FACE, HANDS AND TORSO Home Meds Active Scripts Ondansetron HCl (Ondansetron HCl) 4 Mg Tablet, 4 MG PO Q6H, #20 TAB 0 Refills Prov:LOWELL PICHARDO 03/20/24 Reported Medications Famotidine (Famotidine) 40 Mg Tablet, 1 TAB PO DAILY 02/15/24 Past Medical History Past Medical History: Other Additional Past Medical Hx: ULCERATIVE COLITIS Surgical History: Other, Surgical History Other: ILEIOSTOMY History: Not Applicable LMP: Jan 19, 2025 RN Note Reviewed/Agreed w/PFSH: Yes Review of System Dictation Constitutional: Negative for fever,chills, and weight loss Eyes: Negative for injury, pain,redness, and discharge ENT: Negative for injury,pain or swelling Cardiovascular: Negative for chest pain, palpitations, and edema Respiratory: Negative for shortness of breath, cough, and wheezing, Abdomen/GI: Negative for vomiting, diarrhea, and constipation positive for abdominal pain, nausea Back: Negative for injury and pain : Negative for injury, bleeding and discharge MS/Extremity: Negative for injury and deformity Skin: Negative for rash, and discoloration Neuro: Negative for headache, weakness, numbness, tingling, and seizure Psych: Negative for suicide ideation, homicidal ideation, and hallucinations Initial Vital Sign VS Vital Signs Date Time Temp Pulse Resp B/P (MAP) Pulse Ox O2 Delivery O2 Flow Rate FiO2 01/24/25 01:01 97.2 70 16 125/79 100 Room Air 01/24/25 01:39 0 21 Physical Exam Dictation Vital Signs reviewed General Appearance: Alert, oriented x 3, no acute distress, well developed, nourished. Head and Face: non-traumatic. Eyes: PERRL, pink conjunctivas, eyelid no trauma, anterior chamber with arcus senilis. Ears: Pinnas intact and no signs of trauma or erythema ear canals clear and no discharge TM no erythema Nose: No discharge, no bleeding. Oropharynx: Mouth normal, tongue pink. pharynx clear,no erythema, tonsils no exudates, no abscesses noted, mucous membrane moist Neck: Supple, non-tender, no thyromegaly, no masses, no JVD, no bruits Breast:Deferred Chest:No tenderness, no crepitus, no paradoxical movement, no retractions Lungs:Clear, well-ventilated, symmetric, no rales, no wheezing, no rhonchi, no stridor, good breath sounds bilaterally Heart: Regular rate, regular rhythm, no murmur, no gallops Vascular: no peripheral edema, Abdomen: Soft, positive bowel sounds, nondistended, no guarding, Epigastric tenderness,, no rebound, no masses no hepatomegaly, no splenomegaly, no Sierra's sign, no hernias. Rectal: Deferred Genital: Deferred Neurological: Normal speech, motor function intact, sensory function intact Musculoskeletal: Neck nontender, full range of motion, back nontender, full range of motion, Extremities: nontender, full range of motion Skin: Color pink, dry, no turgor, no rash, no lacerations, no abrasions, no contusions. Lymphatic: Deferred Results (Laboratory/Radiology) Laboratory/Radiology Laboratory Tests Test 01/24/25 01:12 01/24/25 01:13 Urine Color LIGHT-YELLOW (YELLOW) Urine Appearance CLEAR (CLEAR) Urine pH 5.5 (5.0-8.0) Urine Specific [place] 1.021 (1.001-1.031) Urine Protein NEGATIVE mg/dL (NEGATIVE) Urine Glucose (UA) NEGATIVE mg/dL (NEGATIVE) Urine Ketones NEGATIVE mg/dL (NEGATIVE) Urine Occult Blood LARGE (NEGATIVE) H Urine Nitrate NEGATIVE (NEGATIVE) Urine Bilirubin NEGATIVE mg/dL (NEGATIVE) Urine Urobilinogen 0.2 mg/dL (0.2-1.0) Urine Leukocyte Esterase 250 Fernando/uL (NEGATIVE) H Urine RBC 2-5 /HPF (0-1) H Urine WBC 2-5 /HPF (0-1) H Urine Squamous Epithelial Cells FEW /HPF (0-2) Urine Bacteria None /HPF (None Seen) Urine HCG, Qualitative NEGATIVE (NEGATIVE) White Blood Count 11.9 K/uL (4.8-10.8) H Red Blood Count 4.63 MIL/uL (4.00-5.50) Hemoglobin 12.5 g/dL (12.0-16.0) Hematocrit 38.5 % (36-48) Mean Corpuscular Volume 83.2 fL (79-99) Mean Corpuscular Hemoglobin 27.0 pg (27.0-33.0) Mean Corpuscular Hemoglobin Concent 32.5 g/dL (32.0-36.0) Red Cell Distribution Width 14.2 % (11.0-15.5) Platelet Count 437 K/uL (130-400) H Mean Platelet Volume 9.8 fL (7.5-10.5) Immature Granulocyte % (Auto) 0.5 % (0-1) Neutrophils (%) (Auto) 78.8 % (40.0-77.0) H Lymphocytes (%) (Auto) 15.1 % (21.0-51.0) L Monocytes (%) (Auto) 3.7 % (3.0-13.0) Eosinophils (%) (Auto) 1.5 % (0.0-8.0) Basophils (%) (Auto) 0.4 % (0.0-5.0) Neutrophils # (Auto) 9.4 K/uL (1.8-7.7) H Lymphocytes # (Auto) 1.8 K/uL (1.0-4.8) Monocytes # (Auto) 0.4 K/uL (0.1-1.0) Eosinophils # (Auto) 0.18 K/uL (0.00-0.70) Basophils # (Auto) 0.05 K/uL (0.00-0.20) Absolute Immature Granulocyte (auto 0.06 K/uL (0-1) Nucleated Red Blood Cells 0.0 % (0.0-0.19) Sodium Level 137 mmol/L (136-145) Potassium Level 3.5 mmol/L (3.5-5.1) Chloride Level 100 mmol/L (101-111) L Carbon Dioxide Level 30 mmol/L (21-32) Blood Urea Nitrogen 11 mg/dL (7-18) Creatinine 1.0 mg/dL (0.5-1.0) Glomerular Filtration Rate Calc 74 mL/min (>90) Random Glucose 121 mg/dL (70-105) H Total Calcium 8.7 mg/dL (8.5-10.1) Total Bilirubin 0.2 mg/dL (0.2-1.0) Direct Bilirubin 0.1 mg/dL (0.0-0.3) Aspartate Amino Transf (AST/SGOT) 11 U/L (10-37) Alanine Aminotransferase (ALT/SGPT) 14 U/L (12-78) Alkaline Phosphatase 140 U/L (50-136) H Troponin I High Sensitivity < 4 ng/L (4-50) L Total Protein 8.0 g/dL (6.0-8.3) Albumin 3.4 g/dL (3.5-5.0) L Lipase 34 U/L (16-77) Labs Reviewed?: Yes EKG: (+) rhythm (Sinus rhythm) EKG Comment: Date:01/24/2025 Time:0123 Ventricular rate:75 AR interval:131 QRS duration:73 QT/QTc:408 EKG interpretation: Sinus rhythm Reviewed by ED Attending no STEMI ED Course ED Course Orders Procedure Category Date Status Time Vital Signs Per CPOE 01/24/25 Transmitted Routine 01:02 Saline Lock Iv CPOE 01/24/25 Transmitted 01:02 Cbc With Differential LAB 01/24/25 Complete 01:02 Lipase LAB 01/24/25 Complete 01:02 Urinalysis Profile LAB 01/24/25 Complete 01:02 Basic Metabolic Panel LAB 01/24/25 Complete 01:02 ,Urine Test LAB 01/24/25 Complete 01:02 Troponin I High LAB 01/24/25 Complete Sensitivity 01:17 12 Lead Ekg Tracing- EKG 01/24/25 Complete Technical 01:17 Ondansetron 4mg Inj PHA 01/24/25 Complete (Zofran 4mg Inj) 01:30 Lidocaine Hcl 2% PHA 01/24/25 Complete Viscous (Lidocaine Hcl 01:30 Mag/Alum/Simeth 30ml PHA 01/24/25 Complete (Maalox Plus 30ml) 01:30 Pantoprazole 40mg Inj PHA 01/24/25 Complete (Protonix 40mg Inj 01:30 Dicyclomine Hcl PHA 01/24/25 Complete (Bentyl 10mg/5ml 01:30 Hepatic Function Panel LAB 01/24/25 Complete 01:13 Culture Urine ANGEL 01/24/25 In Process 01:26 Us Abdominal Ruq\Ltd US 01/24/25 Taken 02:14 Ceftriaxone 1g Vial PHA 01/24/25 Complete (Rocephine 1g Inj) 02:30 Morphine 4mg Syg PHA 01/24/25 Complete (Morphine 4mg Syg) 02:30 Clindamycin Ivpb PHA 01/24/25 In Process 300mg/50ml (Cleocin 03:09 Current Medications Medications (Trade) Dose Ordered Sig/Luciano Route PRN Reason Start Time Stop Time Status Last Admin Dose Admin Al Hydroxide/Mg Hydroxide (MAALox PLUS 30ML) 30 ml ONCE ONCE PO 01/24/25 01:30 01/24/25 01:31 DC 01/24/25 01:27 Ceftriaxone Sodium (ROCEphine 1G INJ) 1 gm ONCE ONCE IVPB 01/24/25 02:30 01/24/25 02:31 DC 01/24/25 02:28 Clindamycin HCl/ Dextrose 50 ml @ 100 mls/hr STAT STAT IV 01/24/25 03:09 01/24/25 03:38 Dicyclomine HCl (Bentyl 10mg/5ml Syrup) 10 mg ONCE ONCE PO 01/24/25 01:30 01/24/25 01:31 DC 01/24/25 01:27 Lidocaine HCl (Lidocaine HCl 2% Viscous) 10 ml ONCE ONCE PO 01/24/25 01:30 01/24/25 01:31 DC 01/24/25 01:27 Morphine Sulfate (morPHINE 4MG SYG) 4 mg ONCE ONCE IVP 01/24/25 02:30 01/24/25 02:31 DC 01/24/25 02:28 Ondansetron HCl (zoFRAN 4MG INJ) 4 mg ONCE ONCE IVP 01/24/25 01:30 01/24/25 01:31 DC 01/24/25 01:27 Pantoprazole Sodium (PROTonix 40MG INJ) 40 mg ONCE ONCE IVP 01/24/25 01:30 01/24/25 01:31 DC 01/24/25 01:27 Vital Signs Date Time Temp Pulse Resp B/P (MAP) Pulse Ox O2 Delivery O2 Flow Rate FiO2 01/24/25 03:08 100 18 108/71 99 Room Air* 0 21 01/24/25 01:39 77 18 105/58 98 Room Air* 0 21 01/24/25 01:01 97.2 70 16 125/79 100 Room Air Medical Decision Making MDM MDM: The patient is a 39 year old female with a history of ulcerative colitis who presents to the emergency department with complaints of epigastric abdominal pain associated with nausea onset 7:00 p.m. after eating pasta. Patient denies any vomiting, diarrhea or constipation. Denies any fevers. CBC showed mild leukocytosis, no anemia, chemistry showed mild hypochloremia, GFR of 74, negative lipase, negative troponin, urinalysis positive for leukocyte esterase. Ultrasound revealed stones throughout the distended gallbladder in at the level of the neck, non mobile. Patient will be admitted for further evaluation. Differential diagnosis: Gastritis, gastroenteritis, cholelithiasis, cholecystitis Comorbidities: Ulcerative colitis Tests considered and not ordered secondary to shared decision making include: none Previous outside records reviewed: none Risk of complication and/or morbidity or mortality of patient management: The patient meets criteria for admission. Need for emergency major/minor surgery: No There are no social concerns with this patient. I independently interpreted the tests I ordered (labs, urinalysis, etc.). I discussed the case with the hospitalist for admission. Ivory who accepts admission I discussed the case with the following specialists: none. Historian: pateint. I independently interpreted imaging studies and EKGs that I ordered (US, CT, XR, EKG, etc.). External chart review: none. Medical management and examination interpretation discussions were had by me with other qualified healthcare professionals as indicated for the patient's care. DX & DISP Disposition: Inpatient Decision to Admit Date: Jan 24, 2025 Decision to Admit Time: 03:22 Departure Impression: Primary Impression: Cholecystitis Additional Impressions: Leukocytosis, Abdominal pain Condition: Stable Referrals: DELFIN ANDUJAR MD (PCP) I have reviewed the case, and I agree with, Diagnosis and Plan NEHEMIAH FREITAS Jan 24, 2025 02:10
[2025-01-24] MEDS: morPHINE 4 MG SYG IVP ONE (02:28)
[2025-01-24] MEDS: cefTRIAXone 1G VIAL IVPB ONE (02:28)
--- NOTE | 2025-01-24 03:12 | NUR ---
PATIENT REPORTS SHE DOES NOT TAKE ANY PRESCRIBED MEDICATIONS
[2025-01-24] MEDS: CLINDAMYCIN IVPB 300MG/50ML 50 ML IV STA (03:27)
--- NOTE | 2025-01-24 04:20 | HP ---
[facility] HISTORY AND PHYSICAL Date of Service: Jan 24, 2025 Time of Service: 04:01 PCP: Self-referral HISTORY OF PRESENT ILLNESS: This is a 39-year-old female past medical history of ulcerative colitis, gastroenteritis and anemia who presents to the emergency for complaints of epigastric abdominal pain associated with nausea no vomiting started around 7:00 p.m. today while eating chicken Servando and salad at [employer].Patient denies vomiting,fever,chills ,diarrhea and constipation. Upon arrival vital signs tem perature 97.2, heart rate 70, blood pressure 125/79 saturation 100%. Labs: WBC 11 with negative left shift of neutrophils seventy-eight, hemoglobin 12, hematocrit 38, platelet count 437. Chloride 100, glucose 121, alkaline phosphatase 140 troponin less than four albumin 3.4. Urinalysis consistent with urinary tract infection. EKG result revealed sinus rhythm heart rate 75. A bdominal ultrasound result is still pending at this time. While in the ER patient received clindamycin, morphine 4 mg IV, Rocephin 1 g IV, Bentyl 10 mg p.o., Protonix 40 mg IV, Maalox 30 mL p.o., lidocaine 10 mL p.o. and Zofran 4 mg IV. Patient is alert awake and coherent appears uncomfortable complaints of 8/10 pain level and patient states initially abdominal pain started around epigastric area but gradually radiates to her right upper quadrant. We will admit patient for further medical management. REVIEW OF SYSTEMS CONSTITUTIONAL: Denies fevers, chills, or night sweats. No unintentional weight loss reported. NEUROLOGICAL: Denies headache, amaurosis fugax, motor weakness, sensory defic it, vertigo/spinning sensation, gait abnormalities, or tremors. ENT: No hearing loss, otalgia, otorrhea, rhinitis, rhinorrhea, hoarseness, or sore throat. CARDIOVASCULAR: Denies any exertional angina, dyspnea on exertion, orthopnea, paroxysmal nocturnal dyspnea, palpitations, life-threatening arrhythmias, claudication. PULMONARY: Denies any shortness of breath, cough, phlegm/sputum, hemoptysis, pleuritic chest pain. SLEEP: Denies morning headaches, daytime somnolence or napping. Denies difficulty falling asleep, staying asleep, waking from sleep. Denies knowledge of snoring. GASTROINTESTINAL: positive abdominal pain and nausea no vomiting Denies any type of dysphagia to either liquids or solids. Denies vomiting, pyrosis, early satiety, diarrhea, constipation, or changes in stool consistency or caliber. Denies coffee-ground emesis, hematemesis, hematochezia, or melanotic stools. GENITOURINARY: Denies frequency, urgency, nocturia, hematuria or incontinence (Storage/Irritative symptoms.) Low urinary stream, straining to void, urinary intermittency or hesitancy, splitting of the voiding stream, terminal dribbling. ENDOCRINOLOGIC: Denies polyuria, polydipsia, polyphagia or heat/cold intolerances. HEMATOLOGIC: Denies thrombophilia/previous clots, or coagulopathy/bleeding disorders. ONCOLOGIC: Denies personal history of malignancy. DERMATOLOGIC: Denies rashes or pruritus. PSYCHIATRIC: Denies any suicidal or homicidal ideation. Denies hallucinations. PAST MEDICAL HISTORY: Ulcerative colitis Gastroenteritis Anemia PAST SURGICAL HISTORY: x 2, bowel resection and ileostomy reversal PAST SOCIAL HISTORY: Patient lives with family. Patient denies alcohol tobacco and recreational drug use FAMILY HISTORY: Patient denies Coded Allergies: piperacillin (Unverified Allergy, Unknown, RASH, 03/08/24) RASH TO FACE, HANDS AND TORSO tazobactam (Unverified Allergy, Unknown, RASH, 03/08/24) RASH TO FACE, HANDS AND TORSO PHYSICAL EXAM GENERAL APPEARANCE: The patient is awake, alert, and oriented, in no acute cardiopulmonary distress. NEUROLOGICAL: Cranial nerves II-XII grossly intact. Motor is 5/5 in bilateral upper and lower extremities proximal to distal. No sensory deficits. HEENT: Face is symmetric. Pupils are equal and reactive. Extraocular movements are intact. NECK: Supple. No JVD. No thyromegaly. No submental, submandibular, pre- /postauricular, occipital or supraclavicular lymphadenopathy. CHEST: Normal chest expansion. No Telemetry. LUNGS: Absence of any rales, rhonchi or any wheezing. CARDIOVASCULAR: Regular. S1 and S2 normal. No appreciable rubs, murmurs or gallops. ABDOMEN: Positive tenderness around epigastric area and right upper quadrant per palpation Soft and nondistended. There is no rebound, voluntary guarding, or rigidity. : Deferred. No Connolly. EXTREMITIES: Non-edematous and not cyanotic. No clubbing. Good capillary refill. SKIN: No skin breakdown. Vital Sign (Last 24 Hours) 01/24/25 03:56 Temp 98.4 Pulse 98 Resp 17 B/P (MAP) 110/72 Pulse Ox 97 O2 Delivery Room Air* O2 Flow Rate 0 FiO2 21 LABS: Laboratory: Test 01/24/25 01:13 01/24/25 01:12 Range/Units White Blood Count 11.9 H 4.8-10.8 K/uL Red Blood Count 4.63 4.00-5.50 MIL/uL Hemoglobin 12.5 12.0-16.0 g/dL Hematocrit 38.5 36-48 % Mean Corpuscular Volume 83.2 79-99 fL Mean Corpuscular Hemoglobin 27.0 27.0-33.0 pg Mean Corpuscular Hemoglobin Concent 32.5 32.0-36.0 g/dL Red Cell Distribution Width 14.2 11.0-15.5 % Platelet Count 437 H 130-400 K/uL Mean Platelet Volume 9.8 7.5-10.5 fL Immature Granulocyte % (Auto) 0.5 0-1 % Neutrophils (%) (Auto) 78.8 H 40.0-77.0 % Lymphocytes (%) (Auto) 15.1 L 21.0-51.0 % Monocytes (%) (Auto) 3.7 3.0-13.0 % Eosinophils (%) (Auto) 1.5 0.0-8.0 % Basophils (%) (Auto) 0.4 0.0-5.0 % Neutrophils # (Auto) 9.4 H 1.8-7.7 K/uL Lymphocytes # (Auto) 1.8 1.0-4.8 K/uL Monocytes # (Auto) 0.4 0.1-1.0 K/uL Eosinophils # (Auto) 0.18 0.00-0.70 K/uL Basophils # (Auto) 0.05 0.00-0.20 K/uL Absolute Immature Granulocyte (auto 0.06 0-1 K/uL Nucleated Red Blood Cells 0.0 0.0-0.19 % Sodium Level 137 136-145 mmol/L Potassium Level 3.5 3.5-5.1 mmol/L Chloride Level 100 L 101-111 mmol/L Carbon Dioxide Level 30 21-32 mmol/L Blood Urea Nitrogen 11 7-18 mg/dL Creatinine 1.0 0.5-1.0 mg/dL Glomerular Filtration Rate Calc 74 >90 mL/min Random Glucose 121 H 70-105 mg/dL Total Calcium 8.7 8.5-10.1 mg/dL Total Bilirubin 0.2 0.2-1.0 mg/dL Direct Bilirubin 0.1 0.0-0.3 mg/dL Aspartate Amino Transf (AST/SGOT) 11 10-37 U/L Alanine Aminotransferase (ALT/SGPT) 14 12-78 U/L Alkaline Phosphatase 140 H 50-136 U/L Troponin I High Sensitivity < 4 L 4-50 ng/L Total Protein 8.0 6.0-8.3 g/dL Albumin 3.4 L 3.5-5.0 g/dL Lipase 34 16-77 U/L Urine Color LIGHT-YELLOW YELLOW Urine Appearance CLEAR CLEAR Urine pH 5.5 5.0-8.0 Urine Specific [place] 1.021 1.001-1.031 Urine Protein NEGATIVE NEGATIVE mg/dL Urine Glucose (UA) NEGATIVE NEGATIVE mg/dL Urine Ketones NEGATIVE NEGATIVE mg/dL Urine Occult Blood LARGE H NEGATIVE Urine Nitrate NEGATIVE NEGATIVE Urine Bilirubin NEGATIVE NEGATIVE mg/dL Urine Urobilinogen 0.2 0.2-1.0 mg/dL Urine Leukocyte Esterase 250 H NEGATIVE Fernando/uL Urine RBC 2-5 H 0-1 /HPF Urine WBC 2-5 H 0-1 /HPF Urine Squamous Epithelial Cells FEW 0-2 /HPF Urine Bacteria None None Seen /HPF Urine HCG, Qualitative NEGATIVE NEGATIVE Current Medications Medications (Trade) Dose Ordered Sig/Luciano Route PRN Reason Start Time Stop Time Status Last Admin Dose Admin Clindamycin HCl/ Dextrose 50 ml @ 100 mls/hr STAT STAT IV 01/24/25 03:09 01/24/25 03:38 DC 01/24/25 03:27 100 MLS/HR DIAGNOSTICS / RADIOLOGY: [ ] ASSESSMENT: Suspected acute cholecystitis POA Acute thrombocytosis POA Acute urinary tract infection POA History of ulcerative colitis POA History of ileostomy reversal History of bowel resection POA PLAN: We will admit patient in medical surgical We will keep patient nothing by mouth We will start NS @ 100 ml / hr x2 bags and re evaluate We will start patient on Rocephin and Flagyl for broad-spectrum coverage We will start on Protonix 40 mg IV daily for GI prophylaxis We will start on electrolytes replacement per protocol We will add prn medication for fever,pain,cough ,nausea and vomiting We will reconcile home meds once medlist available We will request labs in am Further orders to follow depending on above results Case discussed with attending physician and came up with above treatment and plan of care. ADVANCED CARE PLANNING 1. Which of the following were discussed? Hospice Care - No Therapeutic options - Yes Advance Directives - No Other discussions - 2. Discussed with who? Patient 3. Voluntary nature of this service was explained to the patient? Yes 4. Amount of time spent -22 5. Reviewed by Physician? (if this service was performed by NPP) Yes Patient seen and examined by me. Agree with note by SAFETY DEPOSIT CLERK SEE ADDITIONAL ORDERS PER CHART DISCUSSED WITH NURSING STAFF MARIO HEINP Jan 24, 2025 04:20
[2025-01-24] MEDS ORDERED: cefTRIAXone 1G VIAL 1 GM in 0.9%NACL 50ML 50 ML IV SCH (04:30)
[2025-01-24] MEDS ORDERED: ondanSETRON 4MG INJ IV PRN (04:30)
[2025-01-24] MEDS ORDERED: morPHINE 2 MG SYG IV PRN (04:30)
[2025-01-24] MEDS ORDERED: METRONIDAZOLE 250 MG/50 ML IV SCH (04:30)
[2025-01-24] MEDS ORDERED: acetaMINOPHEN 325 MG TAB PO PRN (04:30)
[2025-01-24] MEDS: 0.9%NACL 1000ML 1,000 ML IV SCH (04:41)
--- NOTE | 2025-01-24 07:05 | NUR ---
ASSUMED PATIENTS CARE.
--- NOTE | 2025-01-24 08:24 | HMCIMG ---
ULTRASOUND ABDOMEN LIMITED INDICATION: Right upper abdominal pain COMPARISON: None FINDINGS: The liver is enlarged and increased in echogenicity; no focal lesion demonstrated. Liver length is measured at 18.5 cm. Main portal vein is patent, and normal direction of vascular flow demonstrated. The common bile duct diameter measures 3.0 mm. Echogenic shadowing stones throughout the gallbladder lumen, including nonmobile echogenic shadowing stone within the gallbladder neck, without associated pericholecystic fluid. Gallbladder is distended. No sonographic Sierra's sign elicited by the ultrasound boom pump operator. Wall thickness measures 2.0 mm. Visible portions of the pancreas appear normal. The right kidney measures 9.1 x 3.6 x 3.3 cm,and is normal in echogenicity, without evidence for hydronephrosis.No shadowing stones demonstrated. No free fluid demonstrated. IMPRESSION: Cholelithiasis and gallbladder hydrops, without cholecystitis at this juncture. Findings suggesting hepatomegaly and hepatic steatosis or other underlying hepatocellular disease process.
[2025-01-24] MEDS: PANTOPrazole 40 MG/VIAL IVP SCH (08:28)
--- NOTE | 2025-01-24 10:01 | NUR ---
CALLED [id number], SPOKE TO MR. HOLLI LONDONO AND GAVE HIM REPORT.
--- NOTE | 2025-01-24 10:05 | NUR ---
PATIENTS BLOOD PRESSURE 60/40 MMHG MANUAL. ASYMPTOMATIC, NO SHORTNESS OF BREATH, NO CHEST PAIN OR BODY DISCOMFORT. PATIENT ABLE TO VOICE NEEDS. PLACED PATIENT IN TRENDELEMBERG POSITION, GAVE 0.9 NSS 1000CC BOLUS AND CALLED MRS. CORDOVA PATIENT SUPPORT SPECIALIST FOR HOSPITALIST TO NOTIFY HER.
--- NOTE | 2025-01-24 10:22 | NUR ---
MRS. CORDOVA CALLED , ( VIEW ORDER) STATED TO GIVE MIDODRINE BEFORE PATIENT GOES TO ROOM 408.
--- NOTE | 2025-01-24 10:25 | NUR ---
PATIENTS BLOOD PRESSURE 89/ 58 MMHG. NO SIGNS OF RESPIRATORY DISTRESS NOTED. NO CHEST PAIN.
--- NOTE | 2025-01-24 10:27 | NUR ---
CALLED Chanell HOLLI TO NOTIFY HIM OF CHANGES IN PATIENTS BLOOD PRESSURE. HE VERBALIZED UNDERSTANDING.
[2025-01-24] MEDS: miDODRine HCL 5 MG TABLET PO ONE (10:33)
--- NOTE | 2025-01-24 10:33 | NUR ---
GAVE PATIENT MIDODRINE 10MG PO DIRECTED BY MRS. CORDOVA MANAGER MATERIAL FOR HOSPITALIST.
--- NOTE | 2025-01-24 10:36 | NUR ---
BLOOD PRESSURE 97/56 MMHG, RESPIRATIONS 16, PULSE 78, O2 SATURATION 100%. PATIENT IS ALERT, ORIENTED IN PERSON, TIME AND PLACE. NO SIGNS OF RESPIRATORY DISTRESS. PATIENT TRANFERED TO ROOM 408.
[2025-01-24 11:59] VITALS: BP 99/64; PULSE 74; RESP 18; TEMP 97.9
[2025-01-24] MEDS: ondanSETRON 4MG TABLET PO SCH (12:00)
--- NOTE | 2025-01-24 12:10 | PN ---
[facility] PROGRESS NOTE Date of Service: Jan 24, 2025 Time of Service: 11:[address] Medina SUBJECTIVE: [ 01/23/25 This is a 39-year-old female past medical history of ulcerative colitis, gastroenteritis and anemia who presents to the emergency for complaints of epigastric abdominal pain associated with nausea no vomiting started around 7:00 p.m. today while eating chicken Servando and salad at [employer].Patient denies vomiting,fever,chills ,diarrhea and constipation. Upon arrival vital signs temperature 97.2, heart rate 70, blood pressure 125/79 saturation 100%. Labs: WBC 11 with negative left shift of neutrophils seventy-eight, hemoglobin 12, hematocrit 38, platelet count 437. Chloride 100, glucose 121, alkaline phosphatase 140 troponin less than four albumin 3.4. Urinalysis consistent with urinary tract infection. EKG result revealed sinus rhythm heart rate 75. Abdominal ultrasound result is still pending at this time. While in the ER patient received clindamycin, morphine 4 mg IV, Rocephin 1 g IV, Bentyl 10 mg p.o., Protonix 40 mg IV, Maalox 30 mL p.o., lidocaine 10 mL p.o. and Zofran 4 mg IV. Patient is alert awake and coherent appears uncomfortable complaints of 8/10 pain level and patient states initially abdominal pain started around epi gastric area but gradually radiates to her right upper quadrant. We will admit patient for further medical management. 01/24/25 patient was seen by nurse practitioner and physician during rounding in room 408. Patient is still complains of abdominal pain that is radiating to her right side. Ultrasound abdomen showed cholelithiasis and gallbladder hydrops without cholecystitis at the juncture. Findings suggested hepatomegaly and hepatic steatosis or other underlying hepatocellular disease process. Surgeon and GI was already consulted with the patient. ADMISSION NURSE was also paged for this patient today in the morning due to blood pressure being low of about 77/62. Most recent blood pressure is noted by RN was 99/64. Patient did receive a bolus in ER. WBC 11.9. UA positive for leukocytosis. ADMISSION NURSE realized that occult blood in the urine was large positive. At this moment patient is menstruating. Urine culture ordered. We will also order the HIDA scan and CT of the abdomen. Patient will also receive 40 mEq of potassium for potassium of 3.5 today. We will continue to monitor patient in the meantime. A.m. labs. Home medication reconciled by ADMISSION NURSE] REVIEW OF SYSTEMS CONSTITUTIONAL: Denies fevers, chills, or night sweats. No unintentional weight loss reported. NEUROLOGICAL: Denies headache, amaurosis fugax, motor weakness, sensory deficit, vertigo/spinning sensation, gait abnormalities, or tremors. ENT: No hearing loss, otalgia, otorrhea, rhinitis, rhinorrhea, hoarseness, or sore throat. CARDIOVASCULAR: Denies any exertional angina, dyspnea on exertion, orthopnea, paroxysmal nocturnal dyspnea, palpitations, life-threatening arrhythmias, claudication. PULMONARY: Denies any shortness of breath, cough, phlegm/sputum, hemoptysis, pleuritic chest pain. SLEEP: Denies morning headaches, daytime somnolence or napping. Denies difficulty falling asleep, staying asleep, waking from sleep. Denies knowledge of snoring. GASTROINTESTINAL: positive abdominal pain and nausea no vomiting Denies any type of dysphagia to either liquids or solids. Denies vomiting, pyrosis, early satiety, diarrhea, constipation, or changes in stool consistency or caliber. Denies coffee-ground emesis, hematemesis, hematochezia, or melanotic stools. GENITOURINARY: Denies frequency, urgency, nocturia, hematuria or incontinence (Storage/Irritative symptoms.) Low urinary stream, straining to void, urinary intermittency or hesitancy, splitting of the voiding stream, terminal dribbling. ENDOCRINOLOGIC: Denies polyuria, polydipsia, polyphagia or heat/cold intol erances. HEMATOLOGIC: Denies thrombophilia/previous clots, or coagulopathy/bleeding disorders. ONCOLOGIC: Denies personal history of malignancy. DERMATOLOGIC: Denies rashes or pruritus. PSYCHIATRIC: Denies any suicidal or homicidal ideation. Denies hallucinations. PHYSICAL EXAM GENERAL APPEARANCE: The patient is awake, alert, and oriented, in no acute cardiopulmonary distress. NEUROLOGICAL: Cranial nerves II-XII grossly intact. Motor is 5/5 in bilateral upper and lower extremities proximal to distal. No sensory deficits. HEENT: Face is symmetric. Pupils are equal and reactive. Extraocular movements are intact. NECK: Supple. No JVD. No thyromegaly. No submental, submandibular, pre- /postauricular, occipital or supraclavicular lymphadenopathy. CHEST: Normal chest expansion. No Telemetry. LUNGS: Absence of any rales, rhonchi or any wheezing. CARDIOVASCULAR: Regular. S1 and S2 normal. No appreciable rubs, murmurs or gallops. ABDOMEN: Positive tenderness around epigastric area and right upper quadrant per palpation Soft and nondistended. There is no rebound, voluntary guarding, or rigidity. : Deferred. No Connolly. EXTREMITIES: Non-edematous and not cyanotic. No clubbing. Good capillary refill. SKIN: No skin breakdown. Vital Signs (last 8hr) Date Time Temp Pulse Resp B/P (MAP) Pulse Ox O2 Delivery O2 Flow Rate FiO2 01/24/25 07:05 97.7 80 11 86/53 97 Room Air* 0 21 01/24/25 06:33 98.4 93 18 98/57 98 Room Air* 0 21 LABS: Laboratory: Test 01/24/25 01:13 01/24/25 01:12 Range/Units White Blood Count 11.9 H 4.8-10.8 K/uL Red Blood Count 4.63 4.00-5.50 MIL/uL Hemoglobin 12.5 12.0-16.0 g/dL Hematocrit 38.5 36-48 % Mean Corpuscular Volume 83.2 79-99 fL Mean Corpuscular Hemoglobin 27.0 27.0-33.0 pg Mean Corpuscular Hemoglobin Concent 32.5 32.0-36.0 g/dL Red Cell Distribution Width 14.2 11.0-15.5 % Platelet Count 437 H 130-400 K/uL Mean Platelet Volume 9.8 7.5-10.5 fL Immature Granulocyte % (Auto) 0.5 0-1 % Neutrophils (%) (Auto) 78.8 H 40.0-77.0 % Lymphocytes (%) (Auto) 15.1 L 21.0-51.0 % Monocytes (%) (Auto) 3.7 3.0-13.0 % Eosinophils (%) (Auto) 1.5 0.0-8.0 % Basophils (%) (Auto) 0.4 0.0-5.0 % Neutrophils # (Auto) 9.4 H 1.8-7.7 K/uL Lymphocytes # (Auto) 1.8 1.0-4.8 K/uL Monocytes # (Auto) 0.4 0.1-1.0 K/uL Eosinophils # (Auto) 0.18 0.00-0.70 K/uL Basophils # (Auto) 0.05 0.00-0.20 K/uL Absolute Immature Granulocyte (auto 0.06 0-1 K/uL Nucleated Red Blood Cells 0.0 0.0-0.19 % Sodium Level 137 136-145 mmol/L Potassium Level 3.5 3.5-5.1 mmol/L Chloride Level 100 L 101-111 mmol/L Carbon Dioxide Level 30 21-32 mmol/L Blood Urea Nitrogen 11 7-18 mg/dL Creatinine 1.0 0.5-1.0 mg/dL Glomerular Filtration Rate Calc 74 >90 mL/min Random Glucose 121 H 70-105 mg/dL Total Calcium 8.7 8.5-10.1 mg/dL Total Bilirubin 0.2 0.2-1.0 mg/dL Direct Bilirubin 0.1 0.0-0.3 mg/dL Aspartate Amino Transf (AST/SGOT) 11 10-37 U/L Alanine Aminotransferase (ALT/SGPT) 14 12-78 U/L Alkaline Phosphatase 140 H 50-136 U/L Troponin I High Sensitivity < 4 L 4-50 ng/L Total Protein 8.0 6.0-8.3 g/dL Albumin 3.4 L 3.5-5.0 g/dL Lipase 34 16-77 U/L Urine Color LIGHT-YELLOW YELLOW Urine Appearance CLEAR CLEAR Urine pH 5.5 5.0-8.0 Urine Specific [place] 1.021 1.001-1.031 Urine Protein NEGATIVE NEGATIVE mg/dL Urine Glucose (UA) NEGATIVE NEGATIVE mg/dL Urine Ketones NEGATIVE NEGATIVE mg/dL Urine Occult Blood LARGE H NEGATIVE Urine Nitrate NEGATIVE NEGATIVE Urine Bilirubin NEGATIVE NEGATIVE mg/dL Urine Urobilinogen 0.2 0.2-1.0 mg/dL Urine Leukocyte Esterase 250 H NEGATIVE Fernando/uL Urine RBC 2-5 H 0-1 /HPF Urine WBC 2-5 H 0-1 /HPF Urine Squamous Epithelial Cells FEW 0-2 /HPF Urine Bacteria None None Seen /HPF Urine HCG, Qualitative NEGATIVE NEGATIVE Current Medications Medications (Trade) Dose Ordered Sig/Luciano Route PRN Reason Start Time Stop Time Status Last Admin Dose Admin Acetaminophen (TYLenol 325MG TAB) 650 mg Q4H PRN PO MILD PAIN (1-3) 01/24/25 04:30 02/23/25 04:29 Acetaminophen (TYLenol 325MG TAB) 650 mg Q6H PRN PO TEMPERATURE GREATER THAN 101.5 01/24/25 04:30 02/23/25 04:29 Ceftriaxone Sodium 1 gm/ Sodium Chloride 50 ml @ 100 mls/hr Q24H IV 01/24/25 04:30 01/24/25 04:36 DC Ceftriaxone Sodium (ROCEphine 1G INJ) 1 gm Q24H IVPB 01/25/25 05:00 02/04/25 04:59 Clindamycin HCl/ Dextrose 50 ml @ 100 mls/hr STAT STAT IV 01/24/25 03:09 01/24/25 03:38 DC 01/24/25 03:27 100 MLS/HR Metronidazole/ Sodium Chloride 50 ml @ 50 mls/hr Q8H IV 01/24/25 04:30 01/24/25 04:33 DC Metronidazole/ Sodium Chloride 50 ml @ 50 mls/hr Q8H IV 01/24/25 05:00 02/03/25 04:59 01/24/25 04:41 50 MLS/HR Miscellaneous Medication (Famotidine ) 1 tab DAILY PO 01/25/25 09:00 01/24/25 10:56 DC Morphine Sulfate (morPHINE 2MG SYG) 2 mg Q4H PRN IV MODERATE PAIN (4-6) 01/24/25 04:30 01/31/25 04:29 Ondansetron HCl (zoFRAN 4MG TABLET) 4 mg Q6H PO 01/24/25 11:00 02/23/25 10:59 Ondansetron HCl (zoFRAN 4MG INJ) 4 mg Q6H PRN IV NAUSEA/VOMITING 01/24/25 04:30 02/23/25 04:29 Pantoprazole Sodium (PROTonix 40MG INJ) 40 mg DAILY IVP 01/24/25 09:00 02/23/25 08:59 01/24/25 08:28 40 MG Sodium Chloride 1,000 ml @ 100 mls/hr Q10H IV 01/24/25 04:30 02/23/25 04:29 01/24/25 04:41 100 MLS/HR DIAGNOSTICS / RADIOLOGY: [ ] ASSESSMENT: Suspected acute cholecystitis POA Cholelithiasis per ultrasound abdomen POA Acute thrombocytosis POA Asymptomatic hypotension POA Severe protein malnutrition POA Intractable nausea and vomiting POA Severe abdominal pain POA Hepatomegaly POA Hepatic steatosis POA Underlying hepatocellular disease process per ultrasound abdomen POA Acute complicated cystitis POA History of ulcerative colitis POA History of ileostomy reversal History of bowel resection POA PLAN: We will admit patient in medical surgical We will keep patient nothing by mouth We will start NS @ 100 ml / hr Continue Rocephin and Flagyl for broad-spectrum coverage Continue Protonix 40 mg IV daily for GI prophylaxis electrolytes replacement per protocol We will add prn medication for fever,pain,cough ,nausea and vomiting Home medications reconciled by ADMISSION NURSE 01/24/2025 labs in am Further orders to follow depending on above results Patient received 40 mEq of potassium Consult GI Consult surgery Tele pack ordered Urine culture ordered HIDA scan pending CT abdomen pending Case discussed with attending physician and came up with above treatment and plan of care. ATTESTATION BY PHYSICIAN I have seen and examined the patient. I reviewed the documentation, medical decision making, and treatment plan as noted by the mid-level provider above. I agree with the findings and plan of care. Lazara Medina MD, KATARZYNA B [employer] Jan 24, 2025 12:10
[2025-01-24] MEDS: PoTASSium chloRIDE 20MEQ ER 20 MEQ ERTAB PO ONE (13:07)
[2025-01-24] MEDS: PoTASSium chl 10% ELIXIR 20MEQ 20 MEQ/15 ML UDCUP PO ONE (13:26)
--- NOTE | 2025-01-24 15:44 | HMCIMG ---
NM HIDA WO EF/CCK HISTORY: gallstones TECHNIQUE: The patient was injected with 7mCi technetium 99 mebrofenin. FINDINGS: Imaging reveals prompt clearance of radiotracer from the cardiac blood pool. There is physiologic radiotracer activity in the liver. There is excretion into the CBD and small bowel. The gallbladder was visualized. IMPRESSION: No evidence of acute cholecystitis.
[2025-01-24 16:00] VITALS: BP 101/62; PULSE 83; RESP 17; TEMP 98
--- NOTE | 2025-01-24 16:19 | HMCIMG ---
CT ABDOMEN W/O CONTRAST HISTORY: severe abd pain TECHNIQUE: CT ABDOMEN W/O CONTRAST . Oral contrast was not given. Sagittal and coronal reformats were obtained. CT was performed with one or more of the following dose reduction techniques: Automated exposure control, adjustment of the mA and/or kV according to the patient's size, or use of the iterative reconstruction technique. Comparison: None. FINDINGS: No pulmonary consolidation or pleural effusion is seen. Unremarkable liver parenchyma. Gallstones are seen. There is no CT evidence of gallbladder wall thickening. The spleen, pancreas, and adrenal glands are within normal limits. No hydronephrosis is identified. Fluid-filled loops of small bowel and colon suggesting enterocolitis in the proper clinical setting. No bowel obstruction is seen. Bowel anastomosis are noted. Mild distended gallbladder with gallstones. Correlate clinically. Appendix is not clearly visualized limiting evaluation. Correlate clinically. Visualized aorta is normal in caliber. No acute osseous findings. IMPRESSION: 1. Fluid-filled loops of small bowel and colon suggesting enterocolitis in the proper clinical setting. No bowel obstruction is seen. Bowel anastomosis are noted. 2. Mild distended gallbladder with gallstones.
[2025-01-24 20:00] VITALS: BP 100/64; PULSE 75; RESP 16; TEMP 98.3; O2SAT 98
[2025-01-24 23:03] VITALS: BP 100/64; PULSE 75; RESP 16; TEMP 98.3
[2025-01-25] VITALS: BP 103/61; PULSE 80; RESP 18; TEMP 99
[2025-01-25 04:00] VITALS: BP_SYST 115; BP_SYST 92; BP_DIAS 56; BP_DIAS 75; PULSE 73; RESP 16; TEMP 98.1
[2025-01-25 04:19] LABS: BASOPHILS # (AUTO) 0.06 K/uL (0.00-0.20); EOSINOPHILS # (AUTO) 0.25 K/uL (0.00-0.70); EOSINOPHILS % (AUTO) 4.1 % (0.0-8.0); HEMATOCRIT 32.8 % (36-48); IMMATURE GRANULOCYTE ABSOLUTE 0.04 K/uL (0-1); LYMPHOCYTES % (AUTO) 32.8 % (21.0-51.0); MEAN CORPUSCULAR HEMOGLOBIN 27.4 pg (27.0-33.0); MEAN CORPUSCULAR HGB CONC 32.6 g/dL (32.0-36.0); MEAN CORPUSCULAR VOLUME 84.1 fL (79-99); MONOCYTES # (AUTO) 0.4 K/uL (0.1-1.0); MONOCYTES % (AUTO) 6.7 % (3.0-13.0); NEUTROPHILS # (AUTO) 3.3 K/uL (1.8-7.7); NEUTROPHILS % (AUTO) 54.7 % (40.0-77.0); PLATELET COUNT (AUTO) 359 K/uL (130-400); RED CELL DISTRIBUTION WIDTH 14.3 % (11.0-15.5); WHITE BLOOD COUNT (AUTO) 6.1 K/uL (4.8-10.8)
[2025-01-25 04:35] LABS: ALBUMIN 2.7 g/dL (3.5-5.0); BILIRUBIN,DIRECT 0.1 mg/dL (0.0-0.3); BILIRUBIN,TOTAL 0.3 mg/dL (0.2-1.0); POTASSIUM 3.5 mmol/L (3.5-5.1); TOTAL PROTEIN, SERUM 6.3 g/dL (6.0-8.3)
[2025-01-25 04:47] LABS: HEMOGLOBIN A1C 5.3 % (4.0-6.0)
[2025-01-25 04:50] LABS: B-TYPE NATRIURETIC PEPTIDE 30 pg/mL (0-100)
[2025-01-25] MEDS: cefTRIAXone 1G VIAL IVPB SCH (05:30)
--- NOTE | 2025-01-25 05:55 | NUR ---
CONSULT DR. BUTLER MADE AWARE OF CONSULT VIA TELEPHONE. NO ORDERS RECEIVED
[2025-01-25 07:57] VITALS: BP 90/53; PULSE 70; RESP 16; TEMP 98.4
[2025-01-25] MEDS ORDERED: NON-FORMULARY MEDICATION 1 EACH (Famotidine 1 TAB) PO SCH (09:00)
[2025-01-25] MEDS: acetaMINOPHEN 325 MG TAB PO PRN (09:21)
[2025-01-25 09:31] VITALS: O2SAT 98
[2025-01-25 11:55] VITALS: BP 96/59; PULSE 70; RESP 16; TEMP 98.6
[2025-01-25] MEDS ORDERED: LEVO-70 PO (12:56)
--- NOTE | 2025-01-25 13:04 | DS ---
Discharge Summary Hospital Course Summary: DATE OF ADMISSION:[01/23/2025] DATE OF DISCHARGE:[01/25/2025] DISPOSITION:[Home] CONDITION:[Medically stable] CONSULTANTS:[GI, surgeon] FOLLOW UP APPOINTMENTS:[PCP 2 to 3 days GI within one week. Surgeon elective for gallbladder removal/PRN] PROCEDURES:[None] IMAGING: report attached to summary MICROBIOLOGY: report attached to summary ACTIVITY:[Independent] HOME MEDICATIONS: see [facility] NEW MEDICATIONS:[Levofloxacin] EMERGENCY INSTRUCTIONS: The patient was instructed to present to the nearest Emergency departmentr or call 911 once their symptoms will return or worsen Sleeve Maker(s): Patient is 39 years old female with past medical history of ulcerative colitis, gastroenteritis and anemia who presents to the emergency for complaints of epigastric abdominal pain associated with nausea no vomiting started around 7:00 p.m. today while eating chicken Servando and salad at [employer]. Throughout the hospitalization patient underwent ultrasound abdomen which showed cholelithiasis and gallbladder hydrops, without cholecystitis at this junction. Findings suggestive hepatomegaly and hepatic steatosis or other underlying hepatocellular disease process. HIDA scan was negative. CT abdomen showed enterocolitis but no obstruction. Today during consultation/evaluation patient denies any abdominal pain and would like to be discharged home. Patient was seen by surgeon and is recommending outpatient gallbladder removal if patient requests at this moment no necessity. We will recommend to the patient to follow up outpatient with the GI within one week. Final urine culture was negative. Patient will be sent on antibiotic for the UTI, leukocytosis 250. Follow-up with PCP in 2 to 3 days. Procedure(s): REVIEW OF SYSTEMS CONSTITUTIONAL: Denies fevers, chills, or night sweats. No unintentional weight loss reported. NEUROLOGICAL: Denies headache, amaurosis fugax, motor weakness, sensory deficit, vertigo/spinning sensation, gait abnormalities, or tremors. ENT: No hearing loss, otalgia, otorrhea, rhinitis, rhinorrhea, hoarseness, or sore throat. CARDIOVASCULAR: Denies any exertional angina, dyspnea on exertion, orthopnea, paroxysmal nocturnal dyspnea, palpitations, life-threatening arrhythmias, claudication. PULMONARY: Denies any shortness of breath, cough, phlegm/sputum, hemoptysis, pleuritic chest pain. SLEEP: Denies morning headaches, daytime somnolence or napping. Denies difficulty falling asleep, staying asleep, waking from sleep. Denies knowledge of snoring. GASTROINTESTINAL: Denies any abdominal pain or nausea no vomiting Denies any type of dysphagia to either liquids or solids. Denies vomiting, pyrosis, early satiety, diarrhea, constipation, or changes in stool consistency or caliber. Denies coffee-ground emesis, hematemesis, hematochezia, or melanotic stools. GENITOURINARY: Denies frequency, urgency, nocturia, hematuria or incontinence (Storage/Irritative symptoms.) Low urinary stream, straining to void, urinary intermittency or hesitancy, splitting of the voiding stream, terminal dribbling. ENDOCRINOLOGIC: Denies polyuria, polydipsia, polyphagia or heat/cold intolerances. HEMATOLOGIC: Denies thrombophilia/previous clots, or coagulopathy/bleeding disorders. ONCOLOGIC: Denies personal history of malignancy. DERMATOLOGIC: Denies rashes or pruritus. PSYCHIATRIC: Denies any suicidal or homicidal ideation. Denies hallucinations. Assessment/Plan: ASSESSMENT: Enterocolitis per CT abdomen/pelvis Suspected acute cholecystitis ruled out per HIDA scan POA Cholelithiasis per ultrasound abdomen POA Acute thrombocytosis POA Asymptomatic hypotension POA Severe protein malnutrition POA Intractable nausea and vomiting POA Severe abdominal pain POA Hepatomegaly POA Hepatic steatosis POA Underlying hepatocellular disease process per ultrasound abdomen POA Acute complicated cystitis POA History of ulcerative colitis POA History of ileostomy reversal History of bowel resection POA Home Medications: Active Scripts Ondansetron HCl (Ondansetron HCl) 4 Mg Tablet, 4 MG PO Q6H, #20 TAB 0 Refills Prov:LOWELL PICHARDO AGPCNP 03/20/24 Reported Medications Famotidine (Famotidine) 40 Mg Tablet, 1 TAB PO DAILY 02/15/24 Time spent arranging discharge: 31-60 minutes ATTESTATION BY PHYSICIAN I have seen and examined the patient. I reviewed the documentation, medical decision making, and treatment plan as noted by the mid-level provider above. I agree with the findings and plan of care. Lazara Medina MD, KATARZYNA B [employer] PROFESSOR Jan 25, 2025 13:04
--- NOTE | 2025-01-25 13:34 | NUR ---
DISCHARGE PT sitting in bed w/ eyes open 0 s/s of distress noted A&Ox4 able to make needs known. Discharge instructions given verbaly and written. PT verbally acknowledged understanding. I.V. removed intact w/o complications. PT escorted to POV via wheel chair by [employer].
--- NOTE | 2025-01-25 13:48 | CONS ---
GENERAL SURGERY CONSULTATION NOTE Date/Time Patient Seen: [ ] Requesting Physician: [ ] Reason for Consultation: [ ] History of Present Illness: [ ] Past Medical History: [ ] Past Surgical History: [ ] Family History: [ ] Social History: [ ] Habits: [Never] smoker. [Denies] alcohol consumption. [Denies] illicit drug use Current Medications Medications (Trade) Dose Ordered Sig/Luciano Route Start Time Stop Time Status Last Admin Dose Admin Ceftriaxone Sodium 1 gm/ Sodium Chloride 50 ml @ 100 mls/hr Q24H IV 01/24/25 04:30 01/24/25 04:36 DC Ceftriaxone Sodium (ROCEphine 1G INJ) 1 gm Q24H IVPB 01/25/25 05:00 01/25/25 13:46 DC 01/25/25 05:30 1 GM Clindamycin HCl/ Dextrose 50 ml @ 100 mls/hr STAT STAT IV 01/24/25 03:09 01/24/25 03:38 DC 01/24/25 03:27 100 MLS/HR Metronidazole/ Sodium Chloride 50 ml @ 50 mls/hr Q8H IV 01/24/25 04:30 01/24/25 04:33 DC Metronidazole/ Sodium Chloride 50 ml @ 50 mls/hr Q8H IV 01/24/25 05:00 01/25/25 13:46 DC 01/25/25 05:57 50 MLS/HR Miscellaneous Medication (Famotidine ) 1 tab DAILY PO 01/25/25 09:00 01/24/25 10:56 DC Ondansetron HCl (zoFRAN 4MG TABLET) 4 mg Q6H PO 01/24/25 11:00 01/25/25 13:46 DC 01/25/25 11:36 4 MG Pantoprazole Sodium (PROTonix 40MG INJ) 40 mg DAILY IVP 01/24/25 09:00 01/25/25 13:46 DC 01/25/25 09:08 40 MG Sodium Chloride 1,000 ml @ 100 mls/hr Q10H IV 01/24/25 04:30 01/25/25 13:46 DC 01/24/25 04:41 100 MLS/HR Review of Systems: CONST: [No fever, fatigue, or weight changes.] EYES: [No recent vision problems.] ENT: [No congestion, ear pain, or sore throat.] C/V: [No chest pain, palpitations, or edema.] RESP: [No cough, congestion, wheezing or shortness of breath.] GI: [No abdominal pain, nausea, vomiting, constipation, or diarrhea.] : [No incontinence or dysuria.] SKIN: [No rash.] NEURO: [No headache, focal numbness or weakness, dizziness, or seizures.] PSYCH: [No depression or anxiety.] HEME: [No abnormal bruising or bleeding.] LYMPH: [No swollen glands.] Physical Examination: GENERAL: [No acute distress.] HEAD: [Normal with no signs of head trauma.] EYES: [PERRLA, EOMI, conjunctiva and sclera normal.] ENT: [Hearing grossly intact, normal oropharynx.] NECK: [Supple without JVD. There is no tenderness, lymphadenopathy, or masses. No thyromegaly. Normal carotid upstrokes without bruits.] LUNGS: [Clear breath sounds bilaterally. There are right basilar rales one third of the way up the chest. No wheezes, or rhonchi.] HEART: [Normal rate and rhythm. Normal S1 and S2 without mumurs, gallop or rub.] VASC: [Peripheral pulses +2 bilaterally.] ABD: [Bowel sounds normal, soft, nontender, no masses, no organomegaly. No audible bruits.] : [Not examined] LYMPH: [No lymphadenopathy noted.] EXT: [No clubbing, cyanosis or edema.] SKIN: [No rashes or lesions noted.] NEURO: [Awake, alert, and oriented x3. No focal sensory or strength deficits noted.] Vital Signs (last 8hr) Date Time Temp Pulse Resp B/P (MAP) Pulse Ox O2 Delivery O2 Flow Rate FiO2 01/25/25 11:55 98.6 70 16 96/59 98 Room Air 01/25/25 09:31 98 Room Air* 0 21 01/25/25 07:57 98.4 70 16 90/53 98 Room Air Laboratory: [ ] Hematology Labs: Test 01/25/25 03:55 Range/Units White Blood Count 6.1 4.8-10.8 K/uL Red Blood Count 3.90 L 4.00-5.50 MIL/uL Hemoglobin 10.7 L 12.0-16.0 g/dL Hematocrit 32.8 L 36-48 % Mean Corpuscular Volume 84.1 79-99 fL Mean Corpuscular Hemoglobin 27.4 27.0-33.0 pg Mean Corpuscular Hemoglobin Concent 32.6 32.0-36.0 g/dL Red Cell Distribution Width 14.3 11.0-15.5 % Platelet Count 359 130-400 K/uL Mean Platelet Volume 9.9 7.5-10.5 fL Immature Granulocyte % (Auto) 0.7 0-1 % Neutrophils (%) (Auto) 54.7 40.0-77.0 % Lymphocytes (%) (Auto) 32.8 21.0-51.0 % Monocytes (%) (Auto) 6.7 3.0-13.0 % Eosinophils (%) (Auto) 4.1 0.0-8.0 % Basophils (%) (Auto) 1.0 0.0-5.0 % Neutrophils # (Auto) 3.3 1.8-7.7 K/uL Lymphocytes # (Auto) 2.0 1.0-4.8 K/uL Monocytes # (Auto) 0.4 0.1-1.0 K/uL Eosinophils # (Auto) 0.25 0.00-0.70 K/uL Basophils # (Auto) 0.06 0.00-0.20 K/uL Absolute Immature Granulocyte (auto 0.04 0-1 K/uL Nucleated Red Blood Cells 0.0 0.0-0.19 % Chemistry Labs: Test 01/25/25 03:55 01/24/25 01:13 Range/Units Sodium Level 139 136-145 mmol/L Potassium Level 3.5 3.5-5.1 mmol/L Chloride Level 106 101-111 mmol/L Carbon Dioxide Level 27 21-32 mmol/L Blood Urea Nitrogen 5 L 7-18 mg/dL Creatinine 1.0 0.5-1.0 mg/dL Glomerular Filtration Rate Calc 74 >90 mL/min Random Glucose 88 70-105 mg/dL Hemoglobin A1c 5.3 4.0-6.0 % Estimated Average Glucose (eAG) 105 70-126 mg/dL Total Calcium 8.3 L 8.5-10.1 mg/dL Magnesium Level 2.00 1.80-2.40 mg/dL Total Bilirubin 0.3 0.2-1.0 mg/dL Direct Bilirubin 0.1 0.0-0.3 mg/dL Aspartate Amino Transf (AST/SGOT) 10 10-37 U/L Alanine Aminotransferase (ALT/SGPT) 9 L 12-78 U/L Alkaline Phosphatase 110 50-136 U/L Total Creatine Kinase 61 # 21-232 U/L B-Type Natriuretic Peptide 30 0-100 pg/mL Total Protein 6.3 6.0-8.3 g/dL Albumin 2.7 L 3.5-5.0 g/dL Troponin I High Sensitivity < 4 L 4-50 ng/L Lipase 34 16-77 U/L Diagnostics / Radiology: [Copy/Paste Echos/Imaging Report here] Assessment: symptomatic cholelithiasis Plan: clears--ADAT can discharge home patient can follow up with me for elective cholecystectomy SILVINA BUTLER MD Jan 25, 2025 13:48
== END 2025-01-25 13:45 | disposition home or self-care (01) ==
LOC: EDH 01:00 → EDHIP 04:20 → INTOOBSV 04:20 → 4BH 10:20
PROVIDERS: ADMIT Internal Medicine; ATTEND Internal Medicine
DX: K52.9 Noninfective gastroenteritis and colitis, unspecified (principal); D75.839 Thrombocytosis, unspecified; E43 Unspecified severe protein-calorie malnutrition; I95.89 Other hypotension; R16.0 Hepatomegaly, not elsewhere classified; K76.0 Fatty (change of) liver, not elsewhere classified; K80.10 Calculus of gallbladder with chronic cholecystitis without obstruction; R11.2 Nausea with vomiting, unspecified; Z90.49 Acquired absence of other specified parts of digestive tract; Z98.890 Other specified postprocedural states; Z79.899 Other long term (current) drug therapy
CPT/HCPCS: 96376 ×2; 96365; 96366 ×2; 96375 ×2; 99284; 80076 ×2; 84484; 80048 ×2; 83690; 85025 ×2; 87086; 81001; 81025; 36415 ×2; 74150; 78226; 76705; 93005; 96368; 83036; 82550; 83735; 83880; G0378 ×28; J7030; J0696 ×2; J2405; J2270; J2470 ×3; Q0162 ×2; J3490 ×4; A9537; 96367; 96374; 99285

== ENCOUNTER 2025-02-14 03:24 | Emergency (ER) | payer BC, MEDICAID ==
[~2025-02-14] VITALS: Ht 154.9 cm; Wt 56.7 kg
[~2025-02-14 03:24] MED LIST changes: +LEVO-70 PO
--- NOTE | 2025-02-14 03:28 | NUR ---
UA CUP PROVIDED
[2025-02-14 03:50] LABS: BASOPHILS # (AUTO) 0.06 K/uL (0.00-0.20); BASOPHILS % (AUTO) 0.7 % (0.0-5.0); EOSINOPHILS # (AUTO) 0.23 K/uL (0.00-0.70); EOSINOPHILS % (AUTO) 2.8 % (0.0-8.0); HEMATOCRIT 36.1 % (36-48); IMMATURE GRANULOCYTE ABSOLUTE 0.04 K/uL (0-1); LYMPHOCYTES # (AUTO) 1.7 K/uL (1.0-4.8); LYMPHOCYTES % (AUTO) 20.6 % (21.0-51.0); MEAN CORPUSCULAR HEMOGLOBIN 27.5 pg (27.0-33.0); MEAN CORPUSCULAR HGB CONC 32.1 g/dL (32.0-36.0); MEAN CORPUSCULAR VOLUME 85.5 fL (79-99); MONOCYTES # (AUTO) 0.5 K/uL (0.1-1.0); MONOCYTES % (AUTO) 5.8 % (3.0-13.0); NEUTROPHILS # (AUTO) 5.6 K/uL (1.8-7.7); NEUTROPHILS % (AUTO) 69.6 % (40.0-77.0); PLATELET COUNT (AUTO) 319 K/uL (130-400); RED BLOOD CELL COUNT(AUTO) 4.22 MIL/uL (4.00-5.50); RED CELL DISTRIBUTION WIDTH 13.8 % (11.0-15.5); WHITE BLOOD COUNT (AUTO) 8.1 K/uL (4.8-10.8)
--- NOTE | 2025-02-14 04:00 | ERN ---
ED Note History of Present Illness Stated Complaint: EPIGASTRIC PAIN Chief Complaint: Abdominal Pain Time Seen by MD: 03:44 Dictation: This is a 39-year-old female who presented to the emergency room with the complaints of epigastric pain and also right upper quadrant pain. She was treated as an inpatient on 01/24/2025 and diagnosed with acute cholecystitis and after course of hospitalization she was supposed to follow up with Dr. Estephanie Brunner for a cholecystectomy but she never did. She comes back in today complaining of the same pain and discomfort. Patient stated that she was trying to eat well and healthy but today she cooked sausage and potatoes for dinner and after she ate with a in a few hours began experiencing epigastric and upper quadrant pain No fever chills or rigors, no nausea vomitings diarrhea hematemesis or melena Temperature 97.6 pulse 78 respirations 16 blood pressure 113/77 with a pulse oximetry of 100% on room air Her chronic medical problems include ulcerative colitis and history of cho lecystitis, ileostomy Allergies: Coded Allergies: piperacillin (Unverified Allergy, Unknown, RASH, 03/08/24) RASH TO FACE, HANDS AND TORSO tazobactam (Unverified Allergy, Unknown, RASH, 03/08/24) RASH TO FACE, HANDS AND TORSO Home Meds Active Scripts Levofloxacin (Levofloxacin) 500 Mg Tablet, 1 TAB PO DAILY for 7 Days, #7 TAB 0 Refills Prov:RAJ CORDOVA ROLLING MACHINE OPERATOR 01/25/25 Ondansetron HCl (Ondansetron HCl) 4 Mg Tablet, 4 MG PO Q6H, #20 TAB 0 Refills Prov:LOWELL PICHARDO AGPCNP 03/20/24 Reported Medications Famotidine (Famotidine) 40 Mg Tablet, 1 TAB PO DAILY 02/15/24 Past Medical History Past Medical History: Other Additional Past Medical Hx: ULCERATIVE COLITIS, CHOLEYSTITIS Surgical History: Other, Surgical History Other: ILEIOSTOMY, RECTAL Family History: Negative History: Not Applicable LMP: February 13, 2025 RN Note Reviewed/Agreed w/PFSH: Yes Review of System Dictation Constitutional: Negative for fever,chills, and weight loss Eyes: Negative for injury, pain,redness, and discharge ENT: Negative for injury,pain or swelling Cardiovascular: Negative for chest pain, palpitations, and edema Respiratory: Negative for shortness of breath, cough, and wheezing, Abdomen/GI: Positive for epigastric abdominal pain, nausea, vomiting, diarrhea, and constipation Back: Negative for injury and pain : Negative for injury, bleeding and discharge MS/Extremity: Negative for injury and deformity Skin: Negative for rash, and discoloration Neuro: Negative for headache, weakness, numbness, tingling, and seizure Psych: Negative for suicide ideation, homicidal ideation, and hallucinations Initial Vital Sign VS Vital Signs Date Time Temp Pulse Resp B/P (MAP) Pulse Ox O2 Delivery O2 Flow Rate FiO2 02/14/25 03:25 97.5 78 16 113/77 100 Room Air 02/14/25 03:46 0 21 Physical Exam Dictation General: awake, alert, NAD Head/Face: Normocephalic, atraumatic Eyes: PERRL, EOMI, vision at baseline ENT: oral cavity clear, TMs clear, no signs of infection Neck: Trachea midline, supple, no nuchal rigidity Cardiovascular: RRR, normal S1/S2, No MRGs, no JVD Respiratory: CTAB, no respiratory distress, No rales or wheezes Abdomen: Soft, non-tender, non-distended, normal bowel sounds, no guarding or rebound. Skin: Warm, dry, normal turgor, no rash MS/Extremity: Pulses equal, no cyanosis, neurovascular intact, FROM Neuro: COAx4, GCS 15, strength 5/5, CN 2-12 intact, normal cerebellar exam, normal gait, Psych: Normal behavior, mood, and affect normal Extremities-trace edema without any palpable cords, Homans sign is negative Results (Laboratory/Radiology) Laboratory/Radiology Laboratory Tests Test 02/14/25 03:42 White Blood Count 8.1 K/uL (4.8-10.8) Red Blood Count 4.22 MIL/uL (4.00-5.50) Hemoglobin 11.6 g/dL (12.0-16.0) L Hematocrit 36.1 % (36-48) Mean Corpuscular Volume 85.5 fL (79-99) Mean Corpuscular Hemoglobin 27.5 pg (27.0-33.0) Mean Corpuscular Hemoglobin Concent 32.1 g/dL (32.0-36.0) Red Cell Distribution Width 13.8 % (11.0-15.5) Platelet Count 319 K/uL (130-400) Mean Platelet Volume 10.1 fL (7.5-10.5) Immature Granulocyte % (Auto) 0.5 % (0-1) Neutrophils (%) (Auto) 69.6 % (40.0-77.0) Lymphocytes (%) (Auto) 20.6 % (21.0-51.0) L Monocytes (%) (Auto) 5.8 % (3.0-13.0) Eosinophils (%) (Auto) 2.8 % (0.0-8.0) Basophils (%) (Auto) 0.7 % (0.0-5.0) Neutrophils # (Auto) 5.6 K/uL (1.8-7.7) Lymphocytes # (Auto) 1.7 K/uL (1.0-4.8) Monocytes # (Auto) 0.5 K/uL (0.1-1.0) Eosinophils # (Auto) 0.23 K/uL (0.00-0.70) Basophils # (Auto) 0.06 K/uL (0.00-0.20) Absolute Immature Granulocyte (auto 0.04 K/uL (0-1) Nucleated Red Blood Cells 0.0 % (0.0-0.19) Urine Color LIGHT-ORANGE (YELLOW) Urine Appearance CLOUDY (CLEAR) H Urine pH 6.0 (5.0-8.0) Urine Specific [place] 1.023 (1.001-1.031) Urine Protein 20 mg/dL (NEGATIVE) H Urine Glucose (UA) NEGATIVE mg/dL (NEGATIVE) Urine Ketones NEGATIVE mg/dL (NEGATIVE) Urine Occult Blood LARGE (NEGATIVE) H Urine Nitrate NEGATIVE (NEGATIVE) Urine Bilirubin NEGATIVE mg/dL (NEGATIVE) Urine Urobilinogen 0.2 mg/dL (0.2-1.0) Urine Leukocyte Esterase 75 Fernando/uL (NEGATIVE) H Urine RBC TNTC /HPF (0-1) H Urine WBC 51-100 /HPF (0-1) H Urine Squamous Epithelial Cells FEW /HPF (0-2) Urine Bacteria FEW /HPF (None Seen) Urine HCG, Qualitative NEGATIVE (NEGATIVE) Sodium Level 144 mmol/L (136-145) Potassium Level 3.5 mmol/L (3.5-5.1) Chloride Level 108 mmol/L (101-111) Carbon Dioxide Level 28 mmol/L (21-32) Blood Urea Nitrogen 12 mg/dL (7-18) Creatinine 0.9 mg/dL (0.5-1.0) Glomerular Filtration Rate Calc 84 mL/min (>90) Random Glucose 88 mg/dL (70-105) Total Calcium 8.6 mg/dL (8.5-10.1) Lipase 38 U/L (16-77) Labs Reviewed?: Yes ED Course ED Course Orders Procedure Category Date Status Time Vital Signs Per CPOE 02/14/25 Transmitted Routine 03:27 Saline Lock Iv CPOE 02/14/25 Transmitted 03:27 Cbc With Differential LAB 02/14/25 Complete 03:27 Lipase LAB 02/14/25 Complete 03:27 Urinalysis Profile LAB 02/14/25 Complete 03:27 Basic Metabolic Panel LAB 02/14/25 Complete 03:27 ,Urine Test LAB 02/14/25 Complete 03:27 Culture Urine ANGEL 02/14/25 In Process 04:04 Ceftriaxone 1g Vial PHA 02/14/25 Complete (Rocephine 1g Inj) 04:30 Morphine 4mg Syg PHA 02/14/25 Complete (Morphine 4mg Syg) 04:30 Ondansetron 4mg Inj PHA 02/14/25 Complete (Zofran 4mg Inj) 04:30 Current Medications Medications (Trade) Dose Ordered Sig/Luciano Route PRN Reason Start Time Stop Time Status Last Admin Dose Admin Ceftriaxone Sodium (ROCEphine 1G INJ) 1 gm ONCE ONCE IVPB 02/14/25 04:30 02/14/25 04:31 DC 02/14/25 04:29 Morphine Sulfate (morPHINE 4MG SYG) 4 mg ONCE ONCE IVP 02/14/25 04:30 02/14/25 04:31 DC 02/14/25 04:29 Ondansetron HCl (zoFRAN 4MG INJ) 4 mg ONCE ONCE IVP 02/14/25 04:30 02/14/25 04:31 DC 02/14/25 04:29 Vital Signs Date Time Temp Pulse Resp B/P (MAP) Pulse Ox O2 Delivery O2 Flow Rate FiO2 02/14/25 04:56 98.2 65 15 107/65 98 Room Air* 0 21 02/14/25 03:46 98.4 76 17 110/71 100 Room Air* 0 21 02/14/25 03:25 97.5 78 16 113/77 100 Room Air We will perform diagnostic labs, advanced imaging and administer medications according to the patient's complaint. Once the results are available, will review and personally interpreted the labs to rule out any acute life- threatening emergency the trach require immediate intervention and treatment. I will then re-evaluate the patient after treatment and diagnostic exams have return to determine whether the patient requires any further testing, can safely be discharged home or need further admission to hospital for additional treatment and evaluation. Reviewed labs CBC is with a normal limits urinalysis showed positive leuko esterase and WBCs 50 1-100. BNP 7 is with a normal limits Pain medication empiric antibiotic was given 5:00 a.m. patient wants to be discharged to home on p.o. antibiotics for her UTI Medical Decision Making MDM MDM: Differential diagnosis: Abdominal pain likely related to biliary colic, other possibilities gastritis gastroesophageal reflux or perhaps chronic pain from multiple abdominal surgeries Rationale: Tests considered and ordered secondary to shared decision making include: Previous outside records reviewed: Old ER visits. Risk of complication and/or morbidity or mortality of patient management: None Medications-Per medication reconciliation Need for hospitalization: Patient does not meet criteria for hospitalization. Need for emergency major/minor surgery: No There are no social concerns with this patient. Prescription drug management Prescriptions will include symptomatic care Patient's prior external medical records from other ER visits were reviewed by me as indicated. Prior testing and results from previous visits were reviewed. Prior tests were taken into account with medical decision making and resource utilization, independent historian/historians were used to obtain complete medical history. I independently interpreted the test that were performed, results were reviewed by me and considered findings on radiology if ordered. Medical management and examination interpretation discussions were had by me wit h other qualified healthcare professionals as indicated for the patient's care. Problem List Problem List: (1) Abdominal pain (2) UTI (urinary tract infection) DX & DISP Disposition: Discharge Departure Impression: Primary Impression: Abdominal pain Additional Impression: UTI (urinary tract infection) Condition: Stable Scripts Nitrofurantoin Monohyd/M-Cryst (Macrobid 100 mg Capsule) 100 Mg Capsule 1 CAP PO BID for 7 Days, #14 CAP 0 Refills Prov: ESPERANZA MA MD 02/14/25 Additional Instructions: Patient and the caregiver have been informed of all the diagnostic tests and the imaging conducted during the today's visit to the emergency room and has verbalized understanding of the results I have personally reviewed and interpreted all diagnostic exams performed here in the ER today as well as the vital signs documented by the nursing staff. The patient is now being discharged to home and should follow up with the primary care physician or the specialist as directed by the ER staff. Patient must also follow up with Dr. Estephanie Brunner and her primary care physician for further evaluation of the cholelithiasis Referrals: SELF,REFERRAL (PCP) ESPERANZA MA MD February 14, 2025 04:00
[2025-02-14 04:02] LABS: APPEARANCE,URINE CLOUDY (CLEAR); BILIRUBIN,URINE NEGATIVE (NEGATIVE); COLOR,URINE LIGHT-ORANGE (YELLOW); GLUCOSE, URINE (UA) NEGATIVE (NEGATIVE); KETONES,URINE NEGATIVE (NEGATIVE); LEUKOCYTE ESTERASE ,URINE 75 Leu/uL (NEGATIVE); NITRATE,URINE NEGATIVE (NEGATIVE); OCCULT BLOOD,URINE LARGE (NEGATIVE); PROTEIN,URINE 20 mg/dL (NEGATIVE); UROBILINOGEN,URINE 0.2 mg/dL (0.2-1.0)
[2025-02-14 04:04] LABS: ADD UA MICROSCOPIC YES
[2025-02-14 04:08] LABS: BACTERIA,URINE FEW /HPF (None Seen); MUCUS,URINE RARE LPF (None Seen); RBC,URINE TNTC /HPF (0-1); SQUAMOUS EPITHELIAL CELL,UR FEW /HPF (0-2); WBC,URINE 51-100 /HPF (0-1)
[2025-02-14 04:09] LABS: HCG,QUALITATIVE URINE NEGATIVE (NEGATIVE)
[2025-02-14 04:22] LABS: CREATININE 0.9 mg/dL (0.5-1.0); POTASSIUM 3.5 mmol/L (3.5-5.1)
[2025-02-14] MEDS: morPHINE 4 MG SYG IVP ONE (04:29)
[2025-02-14] MEDS: ondanSETRON 4MG INJ IVP ONE (04:29)
[2025-02-14] MEDS: cefTRIAXone 1G VIAL IVPB ONE (04:29)
[2025-02-14 04:56] VITALS: BP 107/65; PULSE 65; RESP 15; TEMP 98.2; O2SAT 98
[2025-02-14] MEDS ORDERED: NITR100C4 PO (05:06)
== END 2025-02-14 05:19 | disposition home or self-care (01) ==
LOC: EDH 03:24
DX: N39.0 Urinary tract infection, site not specified (principal); Z79.899 Other long term (current) drug therapy; Z88.0 Allergy status to penicillin; Z98.890 Other specified postprocedural states
CPT/HCPCS: 99284; 96365; 96375; 80048; 83690; 85025; 87086 ×2; 87186; 81001; 81025; 36415; J0696; J2405; J2270

== ENCOUNTER 2025-03-13 11:42 | Observation (INO) | payer BC, MEDICAID ==
[2025-03-12 14:09] LABS: BASOPHILS # (AUTO) 0.07 K/uL (0.00-0.20); BASOPHILS % (AUTO) 0.7 % (0.0-5.0); EOSINOPHILS # (AUTO) 0.16 K/uL (0.00-0.70); EOSINOPHILS % (AUTO) 1.6 % (0.0-8.0); HEMATOCRIT 38.1 % (36-48); IMMATURE GRANULOCYTE ABSOLUTE 0.04 K/uL (0-1); LYMPHOCYTES # (AUTO) 1.2 K/uL (1.0-4.8); LYMPHOCYTES % (AUTO) 12.6 % (21.0-51.0); MEAN CORPUSCULAR HEMOGLOBIN 27.6 pg (27.0-33.0); MEAN CORPUSCULAR HGB CONC 32.5 g/dL (32.0-36.0); MEAN CORPUSCULAR VOLUME 84.7 fL (79-99); MONOCYTES # (AUTO) 0.5 K/uL (0.1-1.0); MONOCYTES % (AUTO) 4.7 % (3.0-13.0); NEUTROPHILS # (AUTO) 7.8 K/uL (1.8-7.7); PLATELET COUNT (AUTO) 356 K/uL (130-400); RED CELL DISTRIBUTION WIDTH 13.8 % (11.0-15.5); WHITE BLOOD COUNT (AUTO) 9.7 K/uL (4.8-10.8)
[2025-03-12 14:15] VITALS: BP 100/66; PULSE 88; RESP 17; TEMP 98.2
[2025-03-12 14:16] LABS: INR 1.02 (0.85-1.15); PROTHROMBIN TIME 10.8 SEC (9.6-11.6)
[2025-03-12 14:17] LABS: PARTIAL THROMBOPLASTIN TIME 29.6 SEC (26.3-35.5)
[2025-03-12 14:25] LABS: CREATININE 0.9 mg/dL (0.5-1.0); POTASSIUM 3.8 mmol/L (3.5-5.1)
[2025-03-13] VITALS (21 sets, daily range): BP systolic 102–119; BP diastolic 64–78; PULSE 65–101; RESP 10–20; TEMP 97.6–98; O2SAT 100
[~2025-03-13] VITALS: Ht 154.9 cm; Wt 57.2 kg
[2025-03-13] MEDS: LACTATED RINGERS 1000ML 1,000 ML IV ONE (12:06)
[2025-03-13] MEDS: INDOCYANINE GREEN 25 MG VIAL IJ ONE (14:00)
[2025-03-13] MEDS ORDERED: dexaMETHasone SOD PHOSPHATE 10MG/ML 1ML VIAL ONE (15:44)
[2025-03-13] MEDS ORDERED: LIDOCAINE PF 100MG/5ML (2%) SYRINGE 5ML ONE (15:44)
[2025-03-13] MEDS ORDERED: phenylEPHRINE HCL 10 MG/ML 1ML VIAL IV ONE (15:45)
[2025-03-13] MEDS ORDERED: proPOFol 10 MG/ML 20ML VIAL IV ONE (15:46)
[2025-03-13] MEDS ORDERED: MIDAZOLAM HCL 1 MG/ML 2ML VIAL ONE (15:46)
[2025-03-13] MEDS ORDERED: NEOSTIGMINE METHYLSULFATE 1MG/ML IV ONE (15:46)
[2025-03-13] MEDS ORDERED: rocuRONium bROMide 10MG/1ML 5ML VL ONE ×2 (15:46→18:23)
[2025-03-13] MEDS ORDERED: ondanSETRON 4MG INJ ONE (15:46)
[2025-03-13] MEDS ORDERED: GLYCOPYRROLATE 0.2 MG/ML 5 ML VIAL ONE (15:46)
[2025-03-13] MEDS ORDERED: FENTanyl CITRate PF 50 MCG/1 ML 2ML VIAL ONE ×2 (15:47→18:03)
[2025-03-13] MEDS: acetaMINOPHEN 100 ML ONE (16:08)
[2025-03-13] MEDS: FAMOTIDINE 20MG VIAL IV ONE (16:08)
[2025-03-13] MEDS ORDERED: TRAM-543 PO (17:19)
[2025-03-13] MEDS ORDERED: ceFAZolin SODIUM 1 GM VIAL ONE (17:28)
[2025-03-13] MEDS ORDERED: ROPivacaine 0.5% 5MG/ML 30ML ONE (17:29)
[2025-03-13] MEDS: ceFAZolin SODIUM 2 GM VIAL IVPB ONE (17:30)
--- NOTE | 2025-03-13 20:53 | OP ---
Operative Note: DATE OF PROCEDURE: 03/13/25 SURGEON: SILVINA BUTLER MD HAND TOOL FILER: [facility] STAFF ANESTHESIA: GENERAL] PREOPERATIVE DIAGNOSIS: CHRONIC CHOLECYSTITIS (SYMPTOMATIC CHOLELITHIASIS) POSTOPERATIVE DIAGNOSIS: CHRONIC CHOLECYSTITIS (SYMPTOMATIC CHOLELITHIASIS) SYNOPSIS: EXTENSIVE SMALL BOWEL ADHESIONS TO THE ANTERIOR ABDOMINAL WALL (FROM PREVIOUS COLON RESECTION AND OSTOMY REVERSAL); CHRONICALLY INFLAMED GALLBLADDER PROCEDURE: ROBOTIC ASSISTED CHOLECYSTECTOMY WITH ICG GREEN IMMUNOFLUORESCENCE; EXTENSIVE LYSIS OF ADHESIONS (45 MINUTES) ESTIMATED BLOOD LOSS: 40 ML INDICATIONS: 39-YEAR-OLD FEMALE PATIENT WHO DIAGNOSED WITH CHRONIC CHOLECYSTITIS (SYMPTOMATIC CHOLELITHIASIS). A ROBOTIC CHOLECYSTECTOMY WAS INDICATED DURING THIS ADMISSION. INFORMED CONSENT WAS OBTAINED PRIOR TO THE PROCEDURE WHICH INCLUDED A DISCUSSION ABOUT THE POSSIBLE RISKS SUCH BLEEDING, INFECTION, BILE DUCT INJURY, BILE LEAK, AND INJURY TO SURROUNDING VISCERA. DESCRIPTION OF PROCEDURE: PATIENT WAS TAKEN TO THE OPERATING ROOM PLACED ON THE OPERATING TABLE IN SUPINE POSITION. NEXT GENERAL ANESTHESIA WAS INDUCED AND THE PATIENT WAS INTUBATED. THERE ABDOMEN WAS PREPPED AND DRAPED IN A STERILE FASHION. A TIME-OUT WAS CALLED AND THE PATIENT'S IDENTITY PROCEDURE AND PREOPERATIVE ANTIBIOTICS WERE CONFIRMED. I ACCESSED THE INTRA-ABDOMINAL CAVITY WITH A 8 MM ROBOTIC PORT WITH A ANGLE SCOPE IN THE LEFT UPPER QUADRANT. A PNEUMOPERITONEUM WAS ESTABLISHED. I SAW THAT THERE WAS A SIGNIFICANT AMOUNT OF ADHESIONS INVOLVING THE SMALL BOWEL THAT WAS TETHERED TO THE ANTERIOR ABDOMINAL WALL. THE PATIENT HAD A HISTORY OF A PREVIOUS ROBOTIC COLECTOMY AND A ROBOTIC REVERSAL OF HER ILEOSTOMY FOR ULCERATIVE COLITIS. I HAD TO STRATEGICALLY PLACED MY ADDITIONAL ROBOTIC PORTS WELL AN HAND TOOL FILER 5 MM LAPAROSCOPIC PORT TO ASSIST WITH LYSING THESE ADHESIONS. I DID NOT LYSE ALL THE ADHESIONS BECAUSE SOME AREAS OF THE SMALL BOWEL WERE PLASTERED TO THE ANTERIOR ABDOMINAL WALL AND I FELT LIKE IT WOULD BE TOO DANGEROUS TO TAKE THESE DOWN. I DID HAVE ENOUGH SPACE TO SAFELY MANEUVER MY ROBOTIC ARMS. THE ROBOT WAS DOCKED TO THE PATIENT. PERTINENT FINDINGS: THE GALLBLADDER APPEARED TO BE CHRONICALLY INFLAMED. THE GALLBLADDER WAS RETRACTED IN A CEPHALAD DIRECTION. I BEGAN TO CAREFULLY DISSECT OUT THE HEPATIC CYSTIC TRIANGLE. I USED ICG GREEN TO CONFIRM DUCTAL ANATOMY. THE CRITICAL VIEW WAS ESTABLISHED. I IDENTIFIED THE CYSTIC ARTERY. THIS WAS CLIPPED AND DIVIDED. THE CYSTIC DUCT WAS IDENTIFIED. THIS WAS CLIPPED AND DIVIDED. I THEN CAUTERIZED THE GALLBLADDER OFF THE LIVER FOSSA BED. I CHECKED THE LIVER BED FOR BLEEDING. HEMOSTASIS WAS OBTAINED WITH ELECTROCAUTERY AND ARIXTRA POWDER. THE GALLBLADDER WAS PLACED IN A SPECIMEN BAG AND REMOVED FROM THE ABDOMINAL CAVITY. I LEFT A 19 [place] ROUND KEMAR DRAIN IN THE RIGHT UPPER QUADRANT. I CAREFULLY REINSPECTED THE SITE OF ADHESIOLYSIS IN THE DID NOT APPRECIATE ANY INADVERTENT SEROSAL TEARS OR ENTEROTOMIES. I CLOSED THE FASCIA OF THE 12 MM PORT WITH A 1-0 VICRYL SUTURE ON A FAIZA-ELLEN CLOSURE DEVICE. THE PNEUMOPERITONEUM WAS EVACUATED. SKIN INCISIONS WERE CLOSED WITH 0.25% MARCAINE. DERMABOND WAS APPLIED. SPONGE NEEDLE INSTRUMENT COUNTS WERE ACCURATE. PATIENT'S ANESTHESIA WAS REVERSED AND THEY WERE EXTUBATED AND TAKEN TO RECOVERY ROOM IN STABLE CONDITION. I PLAN TO ADMIT THE PATIENT OVERNIGHT FOR OBSERVATION DUE TO THE EXTENSIVE A DHESIOLYSIS. SILVINA BUTLER MD Mar 13, 2025 20:53
[2025-03-13] MEDS ORDERED: acetaMINOPHEN 325 MG TAB PO PRN ×2 (21:00)
[2025-03-13] MEDS ORDERED: ondanSETRON 4MG INJ IVP PRN (21:00)
--- NOTE | 2025-03-13 21:24 | NUR ---
POST OP Patient transferred from surgery, vitals stable. Drowsy, easily aroused. Resting comfortably. Plan of care discussed with at bedside. Bed alarm on. Call light within reach. [place] drain to right lower quadrant.
[2025-03-13] MEDS: LACTATED RINGERS 1000ML 1,000 ML IV SCH (22:09)
[2025-03-13] MEDS: SIMETHICONE 80 MG TAB.CHEW PO SCH (22:26)
[2025-03-13] MEDS: morPHINE 4 MG SYG IV PRN (22:27)
[2025-03-14] VITALS (11 sets, daily range): BP systolic 89–121; BP diastolic 50–71; PULSE 72–78; RESP 18; TEMP 97.5–98.5; O2SAT 96–98
[2025-03-14] MEDS: traMADol HCL 50 MG TABLET PO PRN (01:45)
[2025-03-14 04:21] LABS: BASOPHILS # (AUTO) 0.04 K/uL (0.00-0.20); BASOPHILS % (AUTO) 0.3 % (0.0-5.0); HEMATOCRIT 33.8 % (36-48); IMMATURE GRANULOCYTE ABSOLUTE 0.07 K/uL (0-1); LYMPHOCYTES # (AUTO) 0.6 K/uL (1.0-4.8); LYMPHOCYTES % (AUTO) 4.4 % (21.0-51.0); MEAN CORPUSCULAR HEMOGLOBIN 27.8 pg (27.0-33.0); MEAN CORPUSCULAR HGB CONC 33.1 g/dL (32.0-36.0); MEAN CORPUSCULAR VOLUME 83.9 fL (79-99); MONOCYTES # (AUTO) 0.2 K/uL (0.1-1.0); MONOCYTES % (AUTO) 1.2 % (3.0-13.0); NEUTROPHILS # (AUTO) 11.8 K/uL (1.8-7.7); NEUTROPHILS % (AUTO) 93.5 % (40.0-77.0); PLATELET COUNT (AUTO) 308 K/uL (130-400); RED BLOOD CELL COUNT(AUTO) 4.03 MIL/uL (4.00-5.50); RED CELL DISTRIBUTION WIDTH 13.5 % (11.0-15.5); WHITE BLOOD COUNT (AUTO) 12.6 K/uL (4.8-10.8)
[2025-03-14 04:47] LABS: ALBUMIN 2.7 g/dL (3.5-5.0); BILIRUBIN,TOTAL 0.4 mg/dL (0.2-1.0); CREATININE 0.7 mg/dL (0.5-1.0); POTASSIUM 3.9 mmol/L (3.5-5.1); TOTAL PROTEIN, SERUM 6.2 g/dL (6.0-8.3)
--- NOTE | 2025-03-14 06:39 | NUR ---
PAGE Paged Dr. Brunner regarding 0 ml output and JAYLEEN drain to right side abdomen leaking. Abdomen swollen and tender. Pending call back. Vitals stable.
[2025-03-14] MEDS: LIDOCAINE 4% ADH..PATCH TP SCH (08:18)
[2025-03-14] MEDS: FAMOTIDINE 20MG VIAL IV SCH (08:19)
[2025-03-14] MEDS ORDERED: ENOXAPARIN SODIUM 40 MG/0.4 ML SYRINGE SQ SCH (09:00)
[2025-03-14] MEDS: ENOXAPARIN SODIUM 40 MG/0.4 ML SYRINGE SQ SCH (13:01)
--- NOTE | 2025-03-14 13:45 | NUR ---
DCP: INITIAL ASSESSMENT Patient lives with boyfriend, Patricio Hagan. She has no home services or DME. Patient is able to complete ADLs independently and drives. She is still employed concrete batcher. PCP is Dr. Amadeo Flores. Pharmacy is [facility] in [place]. Patient voiced no safety concerns regarding returning home and states she has no difficulty with housing or buying food. DCP is home. Addendum: 03/14/25 at 1349 by KOFFI GUERRA SS Amended: Links added.
--- NOTE | 2025-03-14 16:22 | NUR ---
RADHA JAYLEEN DRAIN REMOVED BY DR. BUTLER AT BEDSIDE. PATIENT TOLERATED WELL.
--- NOTE | 2025-03-14 23:48 | PN ---
GENERAL SURGERY PROGRESS NOTE Date/Time Patient Seen: 03/14/25 Problem List: [ ] Interval History: [ ] Current Medications Medications (Trade) Dose Ordered Sig/Luciano Route Start Time Stop Time Status Last Admin Dose Admin Enoxaparin Sodium (Lovenox) 40 mg DAILY SQ 03/14/25 09:00 04/13/25 08:59 03/14/25 13:01 40 MG Enoxaparin Sodium (Lovenox) 40 mg DAILY SQ 03/14/25 09:00 04/13/25 08:59 UNV Famotidine (Pepcid 20mg Vial) 20 mg BID IV 03/14/25 09:00 04/13/25 08:59 03/14/25 19:57 20 MG Lactated Ringer's 1,000 ml @ 100 mls/hr Q10H IV 03/13/25 21:00 03/14/25 16:38 DC 03/14/25 08:18 100 MLS/HR Lidocaine (Lidocaine Patch 4%) 1 each DAILY TP 03/14/25 09:00 04/13/25 08:59 03/14/25 08:18 1 EACH Simethicone (Mylicon) 80 mg QID PO 03/13/25 21:00 04/12/25 20:59 03/14/25 19:57 80 MG Physical Examination: GENERAL: [No acute distress.] HEAD: [Normal with no signs of head trauma.] EYES: [PERRLA, EOMI, conjunctiva and sclera normal.] ENT: [Hearing grossly intact, normal oropharynx.] NECK: [Supple without JVD. There is no tenderness, lymphadenopathy, or masses. No thyromegaly. Normal carotid upstrokes without bruits.] LUNGS: [Clear breath sounds bilaterally. There are right basilar rales one third of the way up the chest. No wheezes, or rhonchi.] HEART: [Normal rate and rhythm. Normal S1 and S2 without mumurs, gallop or rub.] VASC: [Peripheral pulses +2 bilaterally.] ABD: [Bowel sounds normal, soft, nontender, no masses, no organomegaly. No audible bruits.] : [Not examined] LYMPH: [No lymphadenopathy noted.] EXT: [No clubbing, cyanosis or edema.] SKIN: [No rashes or lesions noted.] NEURO: [Awake, alert, and oriented x3. No focal sensory or strength deficits noted.] Vital Signs (last 8hr) Date Time Temp Pulse Resp B/P (MAP) Pulse Ox O2 Delivery O2 Flow Rate FiO2 03/14/25 22:09 98 Room Air* 0 21 03/14/25 20:00 97.7 76 18 104/65 98 Room Air 03/14/25 16:00 98.2 78 18 97/50 95 Room Air Laboratory: [ ] Hematology Labs: Test 03/14/25 03:47 Range/Units White Blood Count 12.6 H 4.8-10.8 K/uL Red Blood Count 4.03 4.00-5.50 MIL/uL Hemoglobin 11.2 L 12.0-16.0 g/dL Hematocrit 33.8 L 36-48 % Mean Corpuscular Volume 83.9 79-99 fL Mean Corpuscular Hemoglobin 27.8 27.0-33.0 pg Mean Corpuscular Hemoglobin Concent 33.1 32.0-36.0 g/dL Red Cell Distribution Width 13.5 11.0-15.5 % Platelet Count 308 130-400 K/uL Mean Platelet Volume 10.4 7.5-10.5 fL Immature Granulocyte % (Auto) 0.6 0-1 % Neutrophils (%) (Auto) 93.5 H 40.0-77.0 % Lymphocytes (%) (Auto) 4.4 L 21.0-51.0 % Monocytes (%) (Auto) 1.2 L 3.0-13.0 % Eosinophils (%) (Auto) 0.0 0.0-8.0 % Basophils (%) (Auto) 0.3 0.0-5.0 % Neutrophils # (Auto) 11.8 H 1.8-7.7 K/uL Lymphocytes # (Auto) 0.6 L 1.0-4.8 K/uL Monocytes # (Auto) 0.2 0.1-1.0 K/uL Eosinophils # (Auto) 0.00 0.00-0.70 K/uL Basophils # (Auto) 0.04 0.00-0.20 K/uL Absolute Immature Granulocyte (auto 0.07 0-1 K/uL Nucleated Red Blood Cells 0.0 0.0-0.19 % White Cell Morphology Comment See comments Chemistry Labs: Test 03/14/25 03:47 Range/Units Sodium Level 136 136-145 mmol/L Potassium Level 3.9 3.5-5.1 mmol/L Chloride Level 105 101-111 mmol/L Carbon Dioxide Level 24 21-32 mmol/L Blood Urea Nitrogen 8 7-18 mg/dL Creatinine 0.7 0.5-1.0 mg/dL Glomerular Filtration Rate Calc 114 >90 mL/min Random Glucose 138 H 70-105 mg/dL Total Calcium 8.0 L 8.5-10.1 mg/dL Total Bilirubin 0.4 0.2-1.0 mg/dL Aspartate Amino Transf (AST/SGOT) 59 H 10-37 U/L Alanine Aminotransferase (ALT/SGPT) 44 12-78 U/L Alkaline Phosphatase 98 50-136 U/L Total Protein 6.2 6.0-8.3 g/dL Albumin 2.7 L 3.5-5.0 g/dL Diagnostics / Radiology: [Copy/Paste Echos/Imaging Report here] Impression and Plan: advance diet mn tomorrow JEFFERSON Mar 14, 2025 23:48
[2025-03-15] VITALS: BP 100/58; PULSE 98; RESP 18; TEMP 98.5
[2025-03-15 04:10] VITALS: BP 105/63; PULSE 85; RESP 18; TEMP 98.2
[2025-03-15 04:48] LABS: BASOPHILS # (AUTO) 0.04 K/uL (0.00-0.20); BASOPHILS % (AUTO) 0.5 % (0.0-5.0); EOSINOPHILS # (AUTO) 0.75 K/uL (0.00-0.70); EOSINOPHILS % (AUTO) 9.1 % (0.0-8.0); HEMATOCRIT 32.9 % (36-48); IMMATURE GRANULOCYTE ABSOLUTE 0.04 K/uL (0-1); LYMPHOCYTES # (AUTO) 1.7 K/uL (1.0-4.8); LYMPHOCYTES % (AUTO) 20.3 % (21.0-51.0); MEAN CORPUSCULAR HEMOGLOBIN 27.5 pg (27.0-33.0); MEAN CORPUSCULAR HGB CONC 31.6 g/dL (32.0-36.0); MONOCYTES # (AUTO) 0.4 K/uL (0.1-1.0); MONOCYTES % (AUTO) 5.1 % (3.0-13.0); NEUTROPHILS # (AUTO) 5.3 K/uL (1.8-7.7); NEUTROPHILS % (AUTO) 64.5 % (40.0-77.0); PLATELET COUNT (AUTO) 274 K/uL (130-400); RED BLOOD CELL COUNT(AUTO) 3.78 MIL/uL (4.00-5.50); RED CELL DISTRIBUTION WIDTH 13.8 % (11.0-15.5); WHITE BLOOD COUNT (AUTO) 8.2 K/uL (4.8-10.8)
[2025-03-15 05:07] LABS: CREATININE 0.8 mg/dL (0.5-1.0); POTASSIUM 3.3 mmol/L (3.5-5.1)
[2025-03-15 07:56] VITALS: BP 102/74; PULSE 107; RESP 16; TEMP 97.6
[2025-03-15 08:00] VITALS: O2SAT 98
[2025-03-15 11:25] VITALS: BP 100/60; PULSE 94; RESP 16; TEMP 98.6
[2025-03-15] MEDS ORDERED: PoTASSium chl 10% ELIXIR 20MEQ 20 MEQ/15 ML UDCUP PO PRN (13:00)
[2025-03-15] MEDS ORDERED: PoTASSium chloRIDE 20MEQ/100ML 100 ML IV PRN (13:00)
[2025-03-15] MEDS ORDERED: PoTASSium chloRIDE 20MEQ ER 20 MEQ ERTAB PO PRN (13:00)
--- NOTE | 2025-03-15 13:39 | DS ---
Problems: (1) Cholecystitis SILVINA BUTLER MD Mar 15, 2025 13:39
[2025-03-15] MEDS: PoTASSium chl 10% ELIXIR 20MEQ 20 MEQ/15 ML UDCUP PO ONE (15:04)
--- NOTE | 2025-03-15 15:45 | NUR ---
DISCHARGE INSTRUCTIONS GIVEN TO PATIENT VERBALIZED UNDERSTANDING. SALINE LOCK DISCONTINUED NO SWELLING NO REDNESS TO WELL. DISCHARGED HOME VIA W/C TO PRIVATE VEHICLE WITH FAMILY MEMBERS.
== END 2025-03-15 15:45 | disposition home or self-care (01) ==
LOC: DAH 11:42 → DAHIP 20:18 → 4CH 21:15
PROVIDERS: ADMIT Surgery; ATTEND Surgery
DX: K80.10 Calculus of gallbladder with chronic cholecystitis without obstruction (principal); K66.0 Peritoneal adhesions (postprocedural) (postinfection); K51.90 Ulcerative colitis, unspecified, without complications; Z98.890 Other specified postprocedural states; Z79.899 Other long term (current) drug therapy
CPT/HCPCS: 47562; S2900; 36415; 80048; 80053; 84703; 85025; 85610; 85730; 86850; 86900; 86901; 88304; 96372; 96374; 96375; 96376; A4450; A4606; G0378; J0690; J1100; J1650; J2003; J2250; J2270; J2371; J2405; J2704; J2710; J2795; J3010; J3490; J7120; A4215; A4216; A4221; A4222; A4223; A4649; A4663; A6260; C1769